=== PATIENT | male | born 1965 | race Caucasian/White ===

== ENCOUNTER → 2016-08-27 | Outpatient (CLI) | payer OTHER ==
[2016-08-23 09:10] VITALS: BMI 25.0
[2016-08-27 13:14] VITALS: BP 138/62; RESP 16; TEMP 98.9
--- NOTE | 2016-08-27 13:41 | P.HPIM ---
History of Present Illness H&P Date: 08/27/16 Chief Complaint: low back pain s/p multiple back surgeries This is a 51-year-old patient referred by Dr. Choudhary for chronic pain in low back and legs after multiple back surgeries, specifically for left L3-L4 and L4- L5 TFESI; if these injections do not give him relief, Dr. Choudhary is considering performing an XLIF for him. Patient has been taking medications from primary care physician including Valium and Tylenol #3 medications with mild relief. Patient denies adverse drug effects from medications. Patient also denies new-onset weakness, bowel/bladder incontinence, or any other signs or symptoms of cauda equina syndrome. There are no signs of acute intoxication, and no indications of medication diversion or overuse. Of note, patient does have a history of depression with suicidal ideation and was admitted to the hospital in March with this complaint. Patient notes that pain worsens significantly with standing and walking, and improves with rest, ice, injections, and medication. Patient has used several types of medications for pain, including NSAIDS, OPIOIDS (including methadone, up to 10 hydrocodone pills/day, and others), TRAMADOL, ANTIDEPRESSANTS, and BENZODIAZEPINES. Patient HAS had multiple spine surgeries and is considering an anterior lumbar fusion. Patient HAS had numerous injections previously, including caudals, RFAs, SIJ injections, epidurolysis, SCS trial and permanent placement (removed due to lack of functionality). Patient HAS NOT had physical therapy recently, but did so some time ago (was not helpful for him). In addition to above, 13-point review of systems is also negative for chest pain , shortness of breath, changes in vision, changes in hearing, new onset weakness , abdominal pain, diarrhea, extreme fatigue, malaise, fever, skin changes, homicidal or suicidal ideation, or bowel or bladder incontinence. Vital Signs: Reviewed in EMR Gen: WDWN, AAOx3, NAD HEENT: NCAT, EOMI, hearing grossly normal Pulm: resp unlabored Abd: soft, NT, ND Neck: supple, trachea midline ROM in flexion lumbar spine: reduced ROM in extension lumbar spine: reduced Lumbar paravertebral tenderness: + Facet loading: + bilateral SI joint tenderness: + L side > R side Carmelo's test: + L side > R side Straight leg raise: + bilateral Lower extremity: decreased strength LLE (4/5) Neuro: CN II-XII grossly intact, muscle strength lower extremities PRESERVED Past Medical History Past Medical History: Osteoarthritis (OA) Additional Past Medical History / Comment(s): cervical and lumbar region pain radiating to lt buttock and thigh. Degenerative Disc Disease. History of Any Multi-Drug Resistant Organisms: None Reported Past Surgical History: Back Surgery Additional Past Surgical History / Comment(s): six surgeries from [id number], including laminectomy with bone fusion Past Anesthesia/Blood Transfusion Reactions: No Reported Reaction Past Psychological History: No Psychological Hx Reported Smoking Status: Former smoker Past Alcohol Use History: None Reported Additional Past Alcohol Use History / Comment(s): starting smoking age 22 continued off and on 6 cig/day until jul 2016 Past Drug Use History: Marijuana Additional Drug Use History / Comment(s): as a kid. - Past Family History Mother Family Medical History: No Reported History Medications and Allergies Home Medications Medication Instructions Recorded Confirmed Type Acetaminophen-Codeine 300-30mg 1 tab PO Q8H PRN 08/23/16 08/27/16 History [Tylenol #3] DULoxetine HCL [Cymbalta] 60 mg PO DAILY 08/23/16 08/27/16 History Diazepam [Valium] 5 mg PO TID 08/23/16 08/27/16 History Hisxhgf-[id number]-Gnvc [id number] 2 tab PO DAILY PRN 08/27/16 08/27/16 History [Excedrin] Allergies Allergy/AdvReac Type Severity Reaction Status Date / Time Penicillins Allergy Mild Rash/Hives Verified 08/27/16 12:45 methadone Allergy choking Verified 08/27/16 12:45 Results Comments: MRI of the lumbar spine demonstrates tracts from prior pedicle screws at the level of L3-L4 and L5 bilaterally. Within the 3 pedicle on the right side there is abnormal increased signal intensity with abnormal enhancement on the postcontrast images along the tract of the prior pedicle screw. At the L2-L3 level there is posterior disc bulge with facet and ligamentum flavum hypertrophy without central canal stenosis there is mild narrowing of the neural foramina. At the L3-L4 level there is been spinal decompression surgery and a central left-sided foraminal disc protrusion. There is facet hypertrophy and enhancing scar/granulation tissue extending into the posterior superior neural foramina bilaterally. There is severe narrowing of the left neural foramen and left lateral recess and there is moderate narrowing of the right neural foramen on the right lateral recess. The L4-L5 level there are small bilateral foraminal disc protrusions causing mild narrowing on the right neural foramen. At the L5-S1 level there is a small central annular tear with a posterior disc bulge. There is facet and ligamentum flavum hypertrophy at this level along with mild narrowing of the neural foramina. Assessment and Plan (1) Lumbar postlaminectomy syndrome Status: Chronic (2) Lumbosacral spondylosis without myelopathy Status: Chronic (3) Sacroiliac joint dysfunction Status: Chronic (4) Lumbar radiculopathy Status: Chronic Plan: Plan: 1. Explanation: Opioid and psychological risk scores were reviewed. Diagnoses , prognoses, and multiple treatment options including but not limited to physical therapy, interventional therapies, adjuvant medical therapies, narcotic medication therapies, and surgery were discussed with the patient and all questions were answered to the patient's satisfaction. 2. Opioid agreement: no opioids prescribed today 3. Counseling: The patient was counseled extensively on BODY MASS INDEX, EXERCISE. Specifically, the patient was instructed regarding the importance of weight control and exercise in the context of both chronic pain and overall health. 4. Procedures: left L3-L4 and L4-L5 TFESI 5. Consultations: none 6. Investigations: none 7. Medications: none 8. Disposition: Patient has a long history of depression and suicidal ideation , which he did deny today. I told him that we will perform interventions for him, but I am not willing to prescribe opioid medications to him given this history and his going to multiple physicians for medications in the past. He verbalized understanding of this. PQRS measures: 1-Patient's medications are documented in the chart. 2-Tobacco use is negative 3-Patient has not had a pneumococcal vaccine. 4-Advanced care planning discussed, patient unable to give. 5-Opioid contract NOT signed with the patient. 6-Pain positive, follow-up visit or procedure scheduled 7-Patient's blood pressure measured and documented, and patient will follow up with the primary care due to hypertension. 8-Patient's weight was measured, and body mass index within the normal limits. 9-Patient WAS NOT identified as an unhealthy alcohol user. Time with Patient: Greater than 30
== END | disposition home or self-care (01) ==
LOC: PNWHC3 12:36
PROVIDERS: ATTEND Anesthesiology
DX: M96.1 Postlaminectomy syndrome, not elsewhere classified (principal); M47.816 Spondylosis without myelopathy or radiculopathy, lumbar region; M53.88 Other specified dorsopathies, sacral and sacrococcygeal region; M54.16 Radiculopathy, lumbar region; Z87.891 Personal history of nicotine dependence; Z79.899 Other long term (current) drug therapy; Z88.0 Allergy status to penicillin; Z88.6 Allergy status to analgesic agent; I10 Essential (primary) hypertension; F32.9 Major depressive disorder, single episode, unspecified; R45.851 Suicidal ideations
CPT/HCPCS: 99211

== ENCOUNTER → 2016-09-14 | Outpatient (CLI) | payer OTHER ==
--- NOTE | 2016-09-14 13:43 | MR ---
EXAMINATION TYPE: MR cervical spine wo con DATE OF EXAM: 09/14/2016 1:26 PM COMPARISON: 11/13/2015 HISTORY: 51-year-old male paresthesia of left arm, osteoarthritis of spine TECHNIQUE: Multiplanar, multisequence images of the cervical spine were acquired. FINDINGS: There is a polyp or mucosal retention cyst measuring 1.3 cm and the left posterior maxillary sinus. No craniocervical junction abnormality, predental space widening, or prevertebral soft tissue swellin g. Normal alignment of the cervical spine. Redemonstrated degenerative disc disease in the mid to lower cervical spine, primarily at C5-C6 and C 6-C7 characterized by disc desiccation. Moderate disc height loss at C5-C6 and disc osteophyte comple x formation at both of these levels. Ligamentum flavum thickening is also present. No suspicious bone marrow placement. Suggestion of some edematous Modic type I endplate changes are p resent at C5-C6. Additional uncovertebral joint and facet arthropathy at these levels. At C2-C3, no spinal canal or neuroforaminal stenosis. At C3-C4, there is facet degenerative change without significant canal or foraminal stenosis. At C4-C5, there is mild posterior diffuse disc bulge and facet degenerative change. While there is so me impression on the ventral thecal sac, there is no significant spinal canal or neuroforaminal steno sis. At C5-C6, there is increasing broad-based disc osteophyte complex and ligamentum flavum thickening. T here is uncovertebral joint arthropathy as well as facet degenerative change. This results in increas ing moderate spinal canal stenosis with AP canal dimension of 6 mm with abutment and flattening of gareth th the dorsal and ventral cord. Severe bilateral neuroforaminal stenosis also appears increased. At C6-C7, there is disc osteophyte complex with a central posterior disc protrusion. Increasing ligam entum flavum thickening at this level results in worsening now moderate spinal canal stenosis with AP canal dimension of 7 mm. There is abutment and flattening of the dorsal cord. There is mild narrowin g of the left greater than right neuroforamina. At C7-T1, mild facet degenerative change without canal or foraminal stenosis. No abnormal T2 cord signal abnormality. No prevertebral or paravertebral soft tissue abnormality. IMPRESSION: 1. Degenerative disc disease at C5-C6 and to a lesser degree at C6-C7 with corresponding ligamentum f lavum thickening, uncovertebral joint, and facet arthropathy. 2. There is worsening moderate spinal canal stenosis at C5-C6 and to a lesser extent at C6-C7. There is mild impingement of the cord at C5-C6 but no myelopathic cord signal change. Central disc protrusi on and thickened ligamentum flavum abuts the cord at C6-C7 with slight dorsal flattening. 3. Severe bilateral neuroforaminal stenoses at C5-C6.
== END | disposition home or self-care (01) ==
LOC: RADMRIMAIN 12:45
PROVIDERS: ATTEND Internal Medicine
DX: M48.02 Spinal stenosis, cervical region (principal); M99.71 Connective tissue and disc stenosis of intervertebral foramina of cervical region; M50.122 Cervical disc disorder at C5-C6 level with radiculopathy; M46.92 Unspecified inflammatory spondylopathy, cervical region; M24.28 Disorder of ligament, vertebrae
CPT/HCPCS: 72141

== ENCOUNTER 2016-09-25 05:56 | Day surgery (SDC) | payer OTHER ==
[2016-09-21 13:50] VITALS: BMI 24.2
[~2016-09-25 05:56] MED LIST: LACTATED RINGERS 1,000 ML IV SCH
[2016-09-25] MEDS ORDERED: LIDOCAINE 1% 20 ML VIAL (10MG/ML) FOR IV START INTRADERMA ONE (06:49)
[2016-09-25 06:56] VITALS: RESP 16; TEMP 98.4
[2016-09-25] MEDS ORDERED: TRIAMCINOLONE ACETONIDE 40 MG/ML 1 ML VIAL ONE (07:09)
[2016-09-25] MEDS ORDERED: fentaNYL (PF) 50 MCG/ML 2 ML AMP ONE (07:09)
[2016-09-25] MEDS ORDERED: IOHEXOL 180 MG/ML 1 ML ML ONE (07:09)
[2016-09-25] MEDS ORDERED: MIDAZOLAM 2 MG/2 ML VIAL ONE (07:09)
--- NOTE | 2016-09-25 07:40 | P.PCN ---
Date of Procedure: 09/25/16 Procedure(s) Performed: PREOPERATIVE DIAGNOSIS: Lumbar radiculopathy in left L3 4/L4 5 distribution. Lumbar spondylosis. Sacroiliac joint dysfunction. Failed back surgery syndrome lumbar area POSTOPERATIVE DIAGNOSIS: Same as preoperative diagnosis PROCEDURE 1. Transforaminal epidural steroid injection under fluoroscopic guidance at left L3-4 and L4 -5 level. 2. Lumbar epidurogram : ANESTHESIA: Local with 1% lidocaine4 ml ; IV sedation with Versed 2 mg and fentanyle 100 mcg . EBL: Minimal PROCEDURE INDICATION: The patient with low back pain and radiculopathy symptoms unresponsive to conservative treatment. PROCEDURE DESCRIPTION / TECHNIQUE: The patient was seen and identified in the preoperative area. Risks, benefits , complications, and alternatives were discussed with the patient. The patient agreed to proceed with the procedure and signed the consent. IV was started, and vital signs were stable. Patient was taken to the OR and time out was completed. The patient was placed in the prone position on procedure table and a pillow was placed under the abdomen to reduce lumbar lordosis. The lumbosacral area was prepped and draped in the usual sterile fashion. Critical pause was taken. Vital signs were closely monitored during the procedure. Conscious sedation was used during the procedure to decrease patients anxiety. Using oblique fluoroscopy, the chin of the ``Moose dog at left l3-4 level was identified, and the skin and deeper tissues just below was localized with 1 % lidocaine. Subsequently, a 22-gauge 3.5-inch spinal needle was advanced under a tunneled view fluoroscopic guidance just underneath the chin of the ``Moose dog at the left L3 4. Under lateral fluoroscopy, the needle was then advanced to the posterior border of the left L3 4 interforaminal space. After negative aspiration of CSF and blood and with no paresthesias, 1 mL ofomnipaque-240 contrast dye was injected excellent epidurogram and outlining of the left L3 4 nerve root Subsequently, 3 mL of block solution containing 40 mg of Kenalog and 2 mL of Lidocaine 1% was injected. Needle was removed and the same procedure was repeated at the left L4 5. At the end of the procedure, skin was cleansed, and bandages were applied. COMPLICATIONS: None COMMENTS: DISPOSITION / PLANS: The patient was placed in a supine position and transferred to the recovery area in a stable condition for observation. There was no evidence of lower extremity motor or sensory deficit after the procedure. Patient was discharged from the recovery room after meeting discharge criteria. Home discharge instructions were given to the patient by the staff. The patient was reexamined prior to discharge.
[2016-09-25] MEDS ORDERED: IV FLUID CONTINUATION 1,000 ML IV ONE ×2 (07:42)
[2016-09-25 07:50] VITALS: PULSE 61
[2016-09-25 07:55] VITALS: BP 122/80
--- NOTE | 2016-09-25 07:57 | FL ---
EXAMINATION TYPE: FL guided pain mgmt statistic DATE OF EXAM: 09/25/2016 7:37 AM HISTORY: LT LUMBAR STEROID INJ 30 sec fl, 3 films
== END 2016-09-25 08:14 | disposition home or self-care (01) ==
LOC: ORPAIN 05:56
PROVIDERS: ATTEND Specialist
DX: M47.26 Other spondylosis with radiculopathy, lumbar region (principal); M53.3 Sacrococcygeal disorders, not elsewhere classified; M96.1 Postlaminectomy syndrome, not elsewhere classified; Z88.0 Allergy status to penicillin; Z91.09 Other allergy status, other than to drugs and biological substances; Z79.899 Other long term (current) drug therapy
CPT/HCPCS: 64483; 64484; 99152; J2250; J3301; Q9965; J3010

== ENCOUNTER 2016-10-10 06:46 | Day surgery (SDC) | payer OTHER ==
[2016-10-09 08:34] VITALS: BMI 25.0
[2016-10-10 07:44] VITALS: RESP 16; TEMP 98.3
[2016-10-10] MEDS ORDERED: LIDOCAINE 1% 20 ML VIAL (10MG/ML) FOR IV START INTRADERMA ONE (07:51)
[2016-10-10] MEDS ORDERED: MIDAZOLAM 2 MG/2 ML VIAL ONE (08:08)
[2016-10-10] MEDS ORDERED: TRIAMCINOLONE ACETONIDE 40 MG/ML 1 ML VIAL ONE (08:08)
[2016-10-10] MEDS ORDERED: fentaNYL (PF) 50 MCG/ML 2 ML AMP ONE (08:08)
[2016-10-10] MEDS ORDERED: IOHEXOL 180 MG/ML 1 ML ML ONE (08:08)
--- NOTE | 2016-10-10 08:37 | P.PCN ---
Date of Procedure: 10/10/16 Procedure(s) Performed: PREOPERATIVE DIAGNOSIS:1- Lumbar radiculopathy in Left L3-4, Left L4-5 distribution. 2-lumbar spondylosis . 3-sacroiliac joint dysfunction. 4-cervical spondylosis. 5-cervical foraminal stenosis POSTOPERATIVE DIAGNOSIS: Same as preoperative diagnosis. PROCEDURE 1. Transforaminal epidural steroid injection under fluoroscopic guidance at left L3 4/L4 5 level. ( second injections ) 2. Lumbar epidurogram : ANESTHESIA: Local with 1% lidocaine for ML; IV sedation with Versed 2 mg and fentanyle 100 g . EBL: Minimal PROCEDURE INDICATION: The patient with neck pain, and low back pain and radiculopathy symptoms unresponsive to conservative treatment. PROCEDURE DESCRIPTION / TECHNIQUE: The patient was seen and identified in the preoperative area. Risks, benefits , complications, and alternatives were discussed with the patient. The patient agreed to proceed with the procedure and signed the consent. IV was started, and vital signs were stable. Patient was taken to the OR and time out was completed. The patient was placed in the prone position on procedure table and a pillow was placed under the abdomen to reduce lumbar lordosis. The lumbosacral area was prepped and draped in the usual sterile fashion. Critical pause was taken. Vital signs were closely monitored during the procedure. Conscious sedation was used during the procedure to decrease patients anxiety. Using oblique fluoroscopy, the chin of the ``Moose dog at left L3-4 level was identified, and the skin and deeper tissues just below was localized with 1 % lidocaine. Subsequently, a 25-gauge 3.5-inch spinal needle was advanced under a tunneled view fluoroscopic guidance just underneath the chin of the `Aley dog at the left L3-4 . Under lateral fluoroscopy, the needle was then advanced to the posterior border of the Left L3-4 interforaminal space. After negative aspiration of CSF and blood and with no paresthesias, 1 mL ofomnipaque- 240 contrast dye was injected excellent epidurogram and outlining of the left nerve root Subsequently, 3 mL of block solution containing 40 mg of Kenalog and 2 mL of Lidocaine 1% was injected. Needle was removed and the same procedure was repeated at the Left L4-5 level. At the end of the procedure, skin was cleansed, and bandages were applied. COMPLICATIONS: None COMMENTS: DISPOSITION / PLANS: The patient was placed in a supine position and transferred to the recovery area in a stable condition for observation. There was no evidence of lower extremity motor or sensory deficit after the procedure. Patient was discharged from the recovery room after meeting discharge criteria. Home discharge instructions were given to the patient by the staff. The patient was reexamined prior to discharge.
--- NOTE | 2016-10-10 08:42 | FL ---
EXAMINATION TYPE: FL guided pain mgmt statistic DATE OF EXAM: 10/10/2016 8:29 AM HISTORY: Pain 10 sec fluoro, 1 images scanned, Dr. Blackman
[2016-10-10 09:02] VITALS: BP 132/76; PULSE 57
[2016-10-10] MEDS ORDERED: IV FLUID CONTINUATION 1,000 ML IV ONE (09:05)
== END 2016-10-10 09:16 | disposition home or self-care (01) ==
LOC: ORPAIN 06:46
PROVIDERS: ATTEND Specialist
DX: M47.26 Other spondylosis with radiculopathy, lumbar region (principal); M53.3 Sacrococcygeal disorders, not elsewhere classified; M47.812 Spondylosis without myelopathy or radiculopathy, cervical region; M48.02 Spinal stenosis, cervical region; Z88.5 Allergy status to narcotic agent; Z88.0 Allergy status to penicillin
CPT/HCPCS: 64483; 64484; 99152; J2250; J3301; Q9965; J3010

== ENCOUNTER → 2016-12-05 | Outpatient (CLI) | payer OTHER ==
[2016-12-05 11:14] VITALS: BP 140/82; PULSE 61; RESP 18; TEMP 98.2
--- NOTE | 2016-12-05 11:36 | P.PN ---
Progress Note - Text Patient returns for followup for chronic neck and back pain with radiation to LUE and bilateral lower extremities from work-related injury. Patient recently underwent two left sided transforaminal ESIs, which provided some relief for 1- 2 days' interval. Patient continues on [place] medications for pain from Dr. Sheppard with good relief. Patient denies adverse drug effects from medications. Today, pt denies new-onset weakness, bowel/bladder incontinence, or any other signs or symptoms of cauda equina syndrome. There are no signs of acute intoxication, and no indications of medication diversion or overuse. In addition to above, 13-point review of systems is also negative for chest pain , shortness of breath, changes in vision, changes in hearing, new onset weakness , abdominal pain, diarrhea, extreme fatigue, malaise, fever, skin changes, homicidal or suicidal ideation, or bowel or bladder incontinence. Vital Signs: Reviewed in EMR Gen: WDWN, AAOx3, NAD HEENT: NCAT, EOMI, hearing grossly normal Pulm: resp unlabored Abd: soft, NT, ND Neck: supple, trachea midline ROM in flexion lumbar spine: reduced ROM in extension lumbar spine: reduced Lumbar paravertebral tenderness: + Facet loading: + bilateral, L > R SI joint tenderness: + bilateral, L > R Carmelo's test: + bilateral Straight leg raise: + LLE at 10 degrees Lower extremity: decreased strength secondary to pain Neuro: CN II-XII grossly intact, muscle strength lower extremities PRESERVED Imaging: Reviewed in EMR Assessment: 1. lumbar PLPS 2. cervical spinal stenosis 3. chronic pain syndrome Plan: 1. Explanation: Opioid and psychological risk scores were reviewed. Diagnoses , prognoses, and multiple treatment options including but not limited to physical therapy, interventional therapies, adjuvant medical therapies, narcotic medication therapies, and surgery were discussed with the patient and all questions were answered to the patient's satisfaction. 2. Opioid agreement: no opioids prescribed today 3. Counseling: The patient was counseled extensively on BODY MASS INDEX, EXERCISE. Specifically, the patient was instructed regarding the importance of weight control and exercise in the context of both chronic pain and overall health. 4. Procedures: none for now 5. Consultations: Dr. Bai re: neurosurgical opinion 6. Investigations: None 7. Medications: none prescribed 8. Disposition: f/u as needed; patient may return for cervical ESIs if recommended by Dr. Bai. He has already undergone TFESIs with us and also had a spinal cord stimulator placed and subsequently removed. PQRS measures: 1-Patient's medications are documented in the chart. 2-Tobacco use is negative 3-Patient has not had a pneumococcal vaccine. 4-Advanced care planning discussed, patient unable to give. 5-Opioid contract NOT signed with the patient. 6-Pain positive, follow-up visit or procedure scheduled 7-Patient's blood pressure measured and documented, and patient will follow up with the primary care due to hypertension. 8-Patient's weight was measured, and body mass index within the normal limits 9-Patient WAS NOT identified as an unhealthy alcohol user.
== END ==
LOC: PNWHC3 10:51
PROVIDERS: ATTEND Anesthesiology
DX: M48.02 Spinal stenosis, cervical region (principal); G97.1 Other reaction to spinal and lumbar puncture; G89.4 Chronic pain syndrome; Z79.891 Long term (current) use of opiate analgesic
CPT/HCPCS: 99211

== ENCOUNTER → 2017-06-11 | Outpatient (CLI) | payer OTHER ==
--- NOTE | 2017-06-11 23:35 | MR ---
EXAMINATION TYPE: MR willian/lsnany wo/w con DATE OF EXAM: 06/11/2017 COMPARISON: 09/14/2016 cervical spine HISTORY: Klippel-Feil syndrome, Pain, Prior surgeries TECHNIQUE: Multiplanar, multisequence images of the lumbar spine is performed without and with IV contrast, util izing 6.5 mL intravenous Gadavist The cervical vertebra have normal alignment. There is metal artifact apparently from anterior fusion surgery at see 5 6. There are small posterior disc herniations at C4-5 and C6-7 into the spinal canal . The canal is narrowed to 8 mm at C6-7. There are tiny foci of increased signal within the cord at C 5-6 level on the T2 images consistent with some myelomalacia. The brainstem appears intact. Posterior elements are intact. There is no cervical paraspinal mass. The contrast images show some mild dural enhancement around the spinal canal at the C6-7 level. There is mild enhancement of the C5-6 disc. The lumbar vertebra have normal alignment. There is mild narrowing of lumbar disc spaces. There is po sterior disc herniations from L3 to S1 with some narrowing of the spinal canal. There is right side L 3-4 neural foraminal impingement due to disc herniation. There is moderate left side L3-4 disc hernia tion impinging on the neural foramen. I see no focal bone destruction. There is hypertrophic facet ar thropathy with lateral recess stenosis at L4-5 L3-4. Contrast images in the lumbar spine show no path ologic enhancement. I see no focal bone destruction. There is no compression fracture. There is radu ectomy defect in the lower lumbar spine at L4. Conclusion Cervical spine Anterior fusion surgery. There is improvement in the spinal stenosis at C5-6 compared to last exam bu t there is some focal minimal myelomalacia in the cervical cord at C5-6. There are posterior disc her niations at C4-5 and C5-6 which appear increased in size compared to last exam. There is circumferent ial dural enhancement at C6-7 and within C5-6 disc enhancement that could relate to ongoing low-grade inflammatory process and discitis. There is new C6-7 8 mm spinal stenosis. Lumbar spine Posterior multileveled disc herniation. Bilateral significant neural foraminal impingement at L3-4 du e to posterior disc herniation. No fracture. Spinal stenosis at L3-4 L4-5 is mild and worse at L3-4. L4 laminectomy. Moderate lateral recess stenosis due to facet arthropathy at L3-4 and L4-5.
== END | disposition home or self-care (01) ==
LOC: RADMRIMAIN 08:57
PROVIDERS: ATTEND Specialist
DX: M48.061 Spinal stenosis, lumbar region without neurogenic claudication (principal); M48.02 Spinal stenosis, cervical region; M51.27 Other intervertebral disc displacement, lumbosacral region; M50.221 Other cervical disc displacement at C4-C5 level; M46.86 Other specified inflammatory spondylopathies, lumbar region; Z98.890 Other specified postprocedural states; Z98.1 Arthrodesis status
CPT/HCPCS: 72156; 72158; A9581

== ENCOUNTER → 2018-04-03 | Outpatient (CLI) | payer MEDICARE, OTHER ==
--- NOTE | 2018-04-06 17:58 | MR ---
EXAMINATION TYPE: MR lucreciaine/lspine wo/w con DATE OF EXAM: 04/03/2018 COMPARISON: 06/11/2017 HISTORY: 52-year-old male Lower back and neck pain, headaches, bilateral upper extremity weakness, le ft lower extremity pain, history neck surgery Technique: Multiplanar, multisequence images of the cervical and lumbar spine were obtained before an d after administration of 6.5 mL intravenous Gadavist gadolinium contrast. FINDINGS: CERVICAL SPINE: No craniocervical junction abnormality, predental space widening, or prevertebral soft tissue swellin g. Preserved alignment of the cervical spine. No suspicious bone marrow replacement. Postsurgical changes of ACDF at C5-C6. Moderate degenerative disc disease is present at the levels above and below C4-C5 and C6-C7, relative ly similar to prior exam with disc desiccation and disc osteophyte complex. Ligamentum flavum thickening is present at C6/C7. Scattered facet and uncovertebral joint degenerative change. There is stable focal increased cord signal opposite C5-C6 with snake eye configuration compatible wi th chronic compressive myelomalacia. No new abnormal T2 weighted cord signal changes. At C2-C3, mild facet arthropathy without canal or foraminal stenosis. At C3-C4, mild facet arthropathy without significant canal or foraminal stenosis. At C4-C5, above the fusion, there is mild facet and uncovertebral joint degenerative change. There is a mild disc osteophyte complex minimally impressing into the ventral thecal sac. No significant spin al canal stenosis. At C5-C6, the fused level, there is bilateral hypertrophic uncovertebral joint degenerative change an d facet arthropathy. Changes resulting in severe bilateral neural foraminal stenosis but no spinal ca nal stenosis. At C6/C7, below the fusion, there is broad-based disc osteophyte complex with superimposed central di sc protrusion and posterior annular fissure. Ligamentum flavum thickening is present with facet and u ncovertebral joint degenerative change. Changes result in mild left greater than right neuroforaminal stenosis moderate overall spinal canal stenosis, similar to prior exam with abutment of both the bucky kristin and ventral cord but no apparent cord deformation. At C7-T1, mild facet degenerative change without significant canal or foraminal stenosis. No prevertebral or paravertebral soft tissue abnormality. No abnormal cord enhancement. LUMBAR SPINE: 2.2 cm cyst medial left kidney. No prevertebral or paravertebral soft tissue abnormality seen. Vertebral body heights are preserved and alignment is maintained. Moderate multilevel degenerative disc disease is present with variable disc desiccation and mild disc space narrowing. Large disc bulges are present throughout as well as multilevel ligamentum flavum th ickening and hypertrophic facet arthropathy. Prior L3 and L4 laminectomy changes. Conus medullaris is normal. At T12-L1, minimal disc bulge without spinal canal stenosis. Additional mild facet degenerative shaver e which contributes to mild inferior right neural foraminal stenosis, similar to prior. At L1-L2, mild facet arthropathy without significant canal or foraminal stenosis. At L2-L3, mild bulging disc with ligamentum flavum thickening and facet degenerative change. There is ventral impression on the thecal sac without significant spinal canal stenosis. Changes result in mi ld left neuroforaminal stenosis. No significant spinal canal stenosis. At L3-L4, there is diffuse disc bulge with hypertrophic facet arthropathy and ligamentum flavum thick ening. Laminectomy change at this level with dorsal decompression of the thecal sac. However, there i s bilateral lateral recess stenosis demonstrated at this level as well as a superimposed left intrafo raminal disc extrusion with some superior migration of disc material. Some enhancing disc material is present here. Results in a moderate to severe left L3-L4 neuroforaminal stenosis. There is mild oliver toneal enhancement at this level as well, refer to sagittal image 4 and axial images 14. Moderate rig ht neuroforaminal stenosis. At L4-L5, diffuse disc bulge with facet arthropathy. Changes result in mild right greater than left n euroforaminal stenosis. Mild circumferential attenuation of the thecal sac despite dorsal decompressi on. No significant spinal canal stenosis. At L5-S1, there is diffuse disc bulge and facet degenerative change. Mild bilateral neuroforaminal na rrowing without spinal canal stenosis. Posterior annular fissure as previously seen at L4-L5 and L5-S1 show some healing. COMBINED IMPRESSION: CERVICAL SPINE: 1. THE SPINAL CANAL AT C5-C6 REMAINS PATENT STATUS POST C5-C6. THERE IS STABLE CHRONIC COMPRESSIVE MY ELOMALACIA WITH A SNAKE EYE CONFIGURATION OF THE CORD AT THIS LEVEL. 2. SEVERE BILATERAL NEURAL FORAMINAL STENOSES SECONDARY TO HYPERTROPHIC UNCOVERTEBRAL JOINT AND FACET ARTHROPATHY REMAINS AT THIS LEVEL. 3. BELOW THE FUSION AT C6-C7, THERE IS DISC OSTEOPHYTE COMPLEX WITH SUPERIMPOSED CENTRAL DISC PROTRUS ION WITH ANNULAR FISSURE, RELATIVELY SIMILAR TO PRIOR, RESULTING IN MODERATE SPINAL CANAL STENOSIS. T HERE IS ABUTMENT OF BOTH THE DORSAL AND VENTRAL CORD WITHOUT DISCRETE CORD FLATTENING. SIMILAR MILD E NHANCEMENT BOTH ANTERIORLY AND POSTERIORLY AT THIS LEVEL SUSPECTED TO BE ON A DEGENERATIVE BASIS. LUMBAR SPINE: 1. MODERATE MULTILEVEL DEGENERATIVE DISC DISEASE. ADDITIONAL HYPERTROPHIC FACET ARTHROPATHY MID TO LO WER LUMBAR SPINE. THE POSTERIOR ANNULAR FISSURES AT L4-L5 AND L5-S1 SHOW SOME HEALING FROM PRIOR EXAM . 2. STATUS POST L3 AND L4 LAMINECTOMIES. NO CANAL COMPROMISE. 3. AT L3-L4, THERE IS PERSISTENT BILATERAL LATERAL RECESS STENOSIS WITH BULGING DISC AND SUPERIMPOSED LEFT INTRAFORAMINAL DISC EXTRUSION WITH SOME SUPERIOR MIGRATION OF DISC MATERIAL. THIS RESULTS IN A CONTINUED MODERATE TO SEVERE LEFT NEUROFORAMINAL STENOSIS. MODERATE RIGHT NEUROFORAMINAL STENOSIS AT THIS LEVEL. 4. ALSO AT L3-L4, THERE IS MINIMAL PERINEURAL ENHANCEMENT SUGGESTING SOME GRANULATION TISSUE ALONG TH E EXITING LEFT L3 NERVE ROOT.
== END | disposition home or self-care (01) ==
LOC: RADMRIMAIN 14:30
PROVIDERS: ATTEND Psychiatry & Neurology Neurology
DX: M48.02 Spinal stenosis, cervical region (principal); M99.71 Connective tissue and disc stenosis of intervertebral foramina of cervical region; M50.223 Other cervical disc displacement at C6-C7 level; M46.82 Other specified inflammatory spondylopathies, cervical region; Q05.5 Cervical spina bifida without hydrocephalus; M25.78 Osteophyte, vertebrae; G95.89 Other specified diseases of spinal cord; M48.061 Spinal stenosis, lumbar region without neurogenic claudication; M99.73 Connective tissue and disc stenosis of intervertebral foramina of lumbar region; M51.26 Other intervertebral disc displacement, lumbar region; M51.36 Other intervertebral disc degeneration, lumbar region; M46.86 Other specified inflammatory spondylopathies, lumbar region; Q05.7 Lumbar spina bifida without hydrocephalus; Z88.0 Allergy status to penicillin; Z98.1 Arthrodesis status
CPT/HCPCS: 72156; 72158; A9585

== ENCOUNTER → 2018-05-21 | Outpatient (CLI) | payer MEDICARE, OTHER ==
--- NOTE | 2018-05-21 11:56 | FL ---
EXAMINATION TYPE: FL barium swallow DATE OF EXAM: 05/21/2018 COMPARISON: None HISTORY: Dysphagia, pain when drinking, feels like throat closing TECHNIQUE: A double air contrast esophagram study is performed. FINDINGS: Fluoroscopy time: 59 seconds Images: 26 Esophagus dilates to normal caliber has a more normal contour to the gastroesophageal junction. Gastr oesophageal junction opens to normal caliber. No intraluminal or extramural defects are evident. No hesitancy is noted at the anterior cervical fusion. No significant compression is identified. There is complete stripping of the esophageal bolus in the horizontal drinking position. Symptoms were not reproduced during this examination. IMPRESSIONS: 1. Normal esophagram.
== END | disposition home or self-care (01) ==
LOC: RADFLWHC 08:21
PROVIDERS: ATTEND Physician Assistant
DX: R13.13 Dysphagia, pharyngeal phase (principal)
CPT/HCPCS: 74220

== ENCOUNTER 2018-06-11 21:02 | Emergency (ER) | payer MEDICARE, OTHER ==
--- NOTE | 2018-06-11 21:25 | ED ---
Psych HPI - General Chief Complaint: Psychiatric Symptoms Stated Complaint: Mental health Time Seen by Provider: 06/11/18 21:24 Source: patient Mode of arrival: ambulatory - History of Present Illness Initial Comments: Antelmo is a 53-year-old male who presents to the emergency Department today with complaints of depression. Patient reports she's just began to feel overwhelmed, he states he saw outpatient care with a [employer] counselor however he felt as though this counselor was rather judgmental and due to being of the [employer] pur[employer] he felt that he cannot be honest with his counselor about everything that is causing him distress in his life. Patient reports that he came to the ER today seeking advice for with her to have further care. Patient denies suicidal or homicidal ideation. Patient was also distressed by the fact that he suffers from chronic pain due to a work injury which resulted in him needing 7 surgeries on his back. Patient has been on narcotics for a long period time and reports that he also wants to get off of these and wants help. - Related Data Home Medications Medication Instructions Recorded Confirmed Morphine Sulfate ER [Ms Contin] 15 mg PO Q12HR 06/11/18 06/11/18 Multivitamins, Thera [Multivitamin 1 tab PO DAILY 06/11/18 06/11/18 (formulary)] oxyCODONE-APAP 7.5-325MG [Percocet 1 tab PO BID PRN 06/11/18 06/11/18 7.5-325 mg] Allergies Allergy/AdvReac Type Severity Reaction Status Date / Time Penicillins Allergy Mild Rash/Hives Verified 06/11/18 21:35 methadone Allergy choking Verified 06/11/18 21:35 feeling" Review of Systems ROS Statement: Those systems with pertinent positive or pertinent negative responses have been documented in the HPI. ROS Other: All systems not noted in ROS Statement are negative. Past Medical History Past Medical History: Musculoskeletal Disorder, Osteoarthritis (OA) Additional Past Medical History / Comment(s): cervical and lumbar region pain radiating to lt buttock and thigh. Degenerative Disc Disease. History of Any Multi-Drug Resistant Organisms: None Reported Past Surgical History: Back Surgery Additional Past Surgical History / Comment(s): six surgeries from [id number], including laminectomy with bone fusion Past Anesthesia/Blood Transfusion Reactions: No Reported Reaction Past Psychological History: Depression Smoking Status: Former smoker - Past Family History Mother Family Medical History: No Reported History General Exam - General Exam Comments Initial Comments: Physical Exam GENERAL: Patient is well-developed and well-nourished. Patient is nontoxic and well- hydrated and is in no distress. HENT: Normocephalic, Atraumatic. EYES: PERRL, EOMI PULMONARY: Unlabored respirations. No audible rales rhonchi or wheezing was noted. CARDIOVASCULAR: There is a regular rate and rhythm without any murmurs gallops or rubs. ABDOMEN: Soft and nontender with normal bowel sounds. SKIN: Skin is clear with no lesions or rashes and otherwise unremarkable. : Deferred NEUROLOGIC: Patient is alert and oriented x3. Moving all extremities spontaneously MUSCULOSKELETAL: Normal extremities with adequate strength and full range of motion. No lower extremity swelling or edema. No calf tenderness. PSYCHIATRIC: Normal psychiatric evaluation. Limitations: no limitations Limitations: no limitations Course Vital Signs 06/11/18 21:18 Temperature 98.5 F Pulse Rate 901 H Respiratory 16 Rate Blood Pressure 121/78 O2 Sat by Pulse 98 Oximetry Medical Decision Making - Medical Decision Making The patient was seen and evaluated history was obtained from the patient At this time I do not feel the patient is acutely suicidal homicidal, he is clean and well kempt, is clearly attending to his activities of daily living he is requesting outpatient resources Mariah from [facility] met with the patient, she provided the patient outpatient resources. At this time she recommends discharge home. Patient is agreeable to this. All questions pertaining care answered patient discharged home in stable condition. Disposition Clinical Impression: Depression Disposition: HOME SELF-CARE Condition: Stable Instructions: Depression (ED) Is patient prescribed a controlled substance at d/c from ED?: No Referrals: Chris Childs MD [Primary Care Provider] - 1-2 days
[2018-06-11 23:20] VITALS: BP 134/85; PULSE 83; RESP 18; TEMP 99.2
== END 2018-06-11 23:20 | disposition home or self-care (01) ==
LOC: EC 21:02 → SUPCPDRO 21:02 → EC 23:20
DX: F32.9 Major depressive disorder, single episode, unspecified (principal); Z87.891 Personal history of nicotine dependence; Z88.0 Allergy status to penicillin; Z88.5 Allergy status to narcotic agent
CPT/HCPCS: 82075; 99284

== ENCOUNTER 2020-11-12 11:10 | Inpatient (IN) | payer MEDICARE, MEDICAID ==
--- NOTE | 2020-11-12 11:57 | ED ---
General Adult HPI - General Chief complaint: Psychiatric Symptoms Stated complaint: Suicidal Time Seen by Provider: 11/12/20 11:25 Source: patient, RN notes reviewed, old records reviewed Mode of arrival: ambulatory Limitations: no limitations - History of Present Illness Initial comments: This is a 55-year-old male who presents emergency department with past medical history significant for depression. Patient states over the last 2-3 weeks he's felt more depressed he at that point time stopped her Cymbalta because he thought maybe that was adding to his depression. Patient denies any alcohol use patient denies any drug use. Patient currently is on no antidepressants. Patient states no particular but seems to make it worse she thinks the Fligoo just stopped working. Patient denies any fever chills or cough per patient denies any chest pain or difficulty breathing. Patient denies any abdominal pain patient denies nausea vomiting diarrhea. - Related Data Home Medications Medication Instructions Recorded Confirmed DULoxetine HCL [Cymbalta] 60 mg PO DAILY 11/12/20 11/12/20 Gabapentin [Neurontin] 100 mg PO TID PRN 11/12/20 11/12/20 HYDROcodone/APAP 5-325MG [[place] 1 tab PO BID PRN 11/12/20 11/12/20 5-325] Triamcinolone 0.1% Cream [Kenalog 1 applicatio TOPICAL BID PRN 11/12/20 11/12/20 0.1% Cream] Allergies Allergy/AdvReac Type Severity Reaction Status Date / Time Penicillins Allergy Mild Rash/Hives Verified 11/12/20 11:27 methadone Allergy choking Verified 11/12/20 11:27 feeling" Review of Systems ROS Statement: Those systems with pertinent positive or pertinent negative responses have been documented in the HPI. ROS Other: All systems not noted in ROS Statement are negative. Past Medical History Past Medical History: Musculoskeletal Disorder, Osteoarthritis (OA) Additional Past Medical History / Comment(s): cervical and lumbar region pain radiating to lt buttock and thigh. Degenerative Disc Disease. History of Any Multi-Drug Resistant Organisms: None Reported Past Surgical History: Back Surgery Additional Past Surgical History / Comment(s): six surgeries from [id number], including laminectomy with bone fusion Past Anesthesia/Blood Transfusion Reactions: No Reported Reaction Past Psychological History: Depression Smoking Status: Current every day smoker Past Alcohol Use History: None Reported, Abuse Past Drug Use History: None Reported - Past Family History Mother Family Medical History: No Reported History General Exam - General Exam Comments Initial Comments: GENERAL: Patient is well-developed and well-nourished. Patient is nontoxic and well-hydrated and is in no acute distress. ENT: Neck is soft and supple. No significant lymphadenopathy is noted. Oropharynx is clear. Moist mucous membranes. Neck has full range of motion without eliciting any pain. EYES: The sclera were anicteric and conjunctiva were pink and moist. Extraocular movements were intact and pupils were equal round and reactive to light. Eyelids were unremarkable. PULMONARY: Unlabored respirations. Good breath sounds bilaterally. No audible rales rhonchi or wheezing was noted. CARDIOVASCULAR: There is a regular rate and rhythm without any murmurs gallops or rubs. ABDOMEN: Soft and nontender with normal bowel sounds. No palpable organomegaly was noted. There is no palpable pulsatile mass. SKIN: Skin is clear with no lesions or rashes and otherwise unremarkable. NEUROLOGIC: Patient is alert and oriented x3. Cranial nerves II through XII are grossly intact. Motor and sensory are also intact. Normal speech, volume and content. Symmetrical smile. MUSCULOSKELETAL: Normal extremities with adequate strength and full range of motion. LYMPHATICS: No significant lymphadenopathy is noted PSYCHIATRIC: Patient states she's been very depressed over the last couple of weeks and he is now content putting suicide. Patient comes on his own to seek help. Limitations: no limitations Course Vital Signs 11/12/20 11/12/20 11:23 13:15 Temperature 97.7 F Pulse Rate 71 Respiratory 20 16 Rate Blood Pressure 121/72 O2 Sat by Pulse 99 Oximetry Disposition Clinical Impression: Suicidal ideation, Depression Disposition: ADMITTED IP TO THIS HOSP Referrals: Nonstaff,Physician [Primary Care Provider] - 1-2 days Time of Disposition: 14:13
[2020-11-12 14:33] LABS: Amphetamine Screen,Urine Not Detected (NotDetected); Barbiturate Screen,Urine Not Detected (NotDetected); Benzodiazepines Screen,Urine Not Detected (NotDetected); Cocaine Screen,Urine Detected (NotDetected); Methadone Screen, Urine Not Detected (NotDetected); Opiate Screen,Urine Not Detected (NotDetected); Oxycodone Screen, Urine Not Detected (NotDetected); Phencyclidine Screen,Urine Not Detected (NotDetected); Tricyclic Antidepressant,Urine Not Detected (NotDetected); Urn Cannabinoid Scrn Detected (NotDetected)
[2020-11-12] MEDS ORDERED: MAG HYDROX/AL HYDROX/SIMETH 30 ML CUP PO PRN (15:00)
[2020-11-12] MEDS ORDERED: MAGNESIUM HYDROXIDE 2,400 MG/10 ML CUP PO PRN (15:00)
[2020-11-12] MEDS ORDERED: LORazepam 2 MG/ML INJ IM PRN (15:03)
[2020-11-12] MEDS ORDERED: HALOPERIDOL LACTATE 5 MG/ML 1 ML VIAL IM PRN (15:04)
[2020-11-12] MEDS: HYDROcodone/APAP 5-325MG 1 EACH TAB PO PRN ×2 (16:52→21:15)
[2020-11-12] MEDS: GABAPENTIN 100 MG CAP PO SCH (21:14)
[2020-11-13] MEDS ORDERED: diphenhydrAMINE 25 MG CAP PO PRN (00:34)
--- NOTE | 2020-11-13 00:34 | P.CONS ---
History of Present Illness - Reason for Consult Consult date: 11/13/20 - History of Present Illness The patient is a 55-year-old male with a PMH of spinal DJD, polysubstance abuse, and depression who presented to the emergency room complaints of depressive thoughts. The patient was admitted to the mental health unit where he was seen and evaluated. She reports feeling better since his admission. He notes that he has been having difficulty with his circumstances since he has been having to take care of his elderly father. He also reports chronic lower back and buttock pain, unchanged, for which she takes [place] 5 at home. He also reports itching with some redness over his forearms bilaterally. He isn't sure what caused it but reports that it started when 2 days ago and has occurred in the past and normally resolved with topical steroids and Benadryl. He denied additional complaints. Denied chest pain, shortness of breath, fever, chills, cough. Denied abdominal pain, nausea, vomiting, diarrhea. Laboratory evaluation was reviewed with urine tox cardiac positive for cocaine and marijuana. Review of systems: Pertinent positives and negatives as discussed in HPI, a complete review of systems was performed and all other systems are negative. Physical examination: General: non toxic, no distress, appears at stated age, normal weight Derm: Mild erythema overlying the extensor surfaces of bilateral forearms, no unusual ecchymoses, warm, dry Head: atraumatic, normocephalic, symmetric Eyes: EOMI, no lid lag, anicteric sclera, pupils equal round reactive to light ENT: Nose and ears atraumatic, no thrush, no pharyngeal erythema Neck: No thyromegaly, no cervical lymphadenopathy, trachea midline, supple Mouth: no lip lesion, mucus membranes moist Cardiovascular: S1S2 reg, no murmur, positive posterior tibial pulse bilateral, no edema, capillary refill less than 2 seconds Lungs: CTA bilateral, no rhonchi, no rales , no accessory muscle use Abdominal: soft, nontender to palpation, no guarding, no appreciable organomegaly, normal bowel sounds Ext: no gross muscle atrophy, muscle strength 5 out of 5 in all 4 extremities grossly, no contractures, Neuro: CN II-XI grossly intact, light touch intact all 4 extremities, finger to nose within normal limits, Psych: Alert, oriented, appropriate affect Assessment/plan Spinal DJD -Continue with home [place] dose Polysubstance abuse -Advised on importance of cessation Depression -As per psychiatry Forearm rash -Hydrocortisone topically Past Medical History Past Medical History: Musculoskeletal Disorder, Osteoarthritis (OA) Additional Past Medical History / Comment(s): -Cervical and Lumbar region pain radiating to lt buttock and thigh. -Degenerative Disc Disease. History of Any Multi-Drug Resistant Organisms: None Reported Past Surgical History: Back Surgery Additional Past Surgical History / Comment(s): Sevon surgeries from [id number] including laminectomy with bone fusion. Past Anesthesia/Blood Transfusion Reactions: No Reported Reaction Past Psychological History: Depression Smoking Status: Current every day smoker Past Alcohol Use History: None Reported, Abuse Additional Past Alcohol Use History / Comment(s): starting smoking age 12 continued off and on 6 cig/day until jul 2016. Smokes 1/1 pack of cigarettes per day. Past Drug Use History: Cocaine Additional Drug Use History / Comment(s): Pt. denies ETOH and drug use. BAT 0. UDS + Cocaine and THC. - Past Family History Mother Family Medical History: Cancer Father Family Medical History: Cancer Additional Family Medical History / Comment(s): Stage IV Lung Cancer Medications and Allergies Home Medications Medication Instructions Recorded Confirmed Type DULoxetine HCL [Cymbalta] 60 mg PO DAILY 11/12/20 11/12/20 History Gabapentin [Neurontin] 100 mg PO TID PRN 11/12/20 11/12/20 History HYDROcodone/APAP 5-325MG [[place] 1 tab PO BID PRN 11/12/20 11/12/20 History 5-325] Triamcinolone 0.1% Cream [Kenalog 1 applicatio TOPICAL BID PRN 11/12/20 11/12/20 History 0.1% Cream] Allergies Allergy/AdvReac Type Severity Reaction Status Date / Time Penicillins Allergy Mild Rash/Hives Verified 11/12/20 17:05 methadone Allergy choking Verified 11/12/20 17:05 feeling" Physical Exam Vitals: Vital Signs Temp Pulse Pulse Resp BP BP Pulse Ox 11/12/20 16:37 98.7 F 63 16 132/73 97 11/12/20 13:15 16 11/12/20 11:23 97.7 F 71 20 121/72 99 Intake and Output 11/12/20 11/12/20 11/13/20 14:59 22:59 06:59 Other: Weight 66.678 kg 62.596 kg Results Labs: Abnormal Lab Results - Last 24 Hours (Table) 11/12/20 Range/Units 13:20 Urine Cocaine Screen Detected H (NotDetected) U Marijuana (THC) Screen Detected H (NotDetected)
[2020-11-13] MEDS: HYDROcodone/APAP 5-325MG 1 EACH TAB PO PRN ×2 (02:35→13:33)
[2020-11-13] MEDS: NICOTINE 21MG/24HR PATCH TRANSDERM SCH (08:42)
[2020-11-13] MEDS: GABAPENTIN 100 MG CAP PO SCH ×3 (08:42→21:36)
[2020-11-13] MEDS: HYDROCORTISONE 1% CREAM 454 GM JAR TOPICAL SCH ×2 (08:42→21:37)
[2020-11-13 12:01] LABS: HGB 15.4 gm/dL (13.0-17.5); MCH 30.8 pg (25.0-35.0); MCHC 30.9 g/dL (31.0-37.0); MCV 99.9 fL (80.0-100.0); Macrocytosis Slight; Mean Platelet Volume 8.2; Platelet Count 351 k/uL (150-450); RBC 5.01 m/uL (4.30-5.90); RDW 14.1 % (11.5-15.5); WBC 7.1 k/uL (3.8-10.6)
[2020-11-13] MEDS: ACETAMINOPHEN TAB 325 MG TAB PO PRN (12:09)
[2020-11-13] MEDS: LORazepam 1 MG TAB PO PRN ×2 (12:11→19:52)
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
[2020-11-13 12:22] LABS: ALT 24 U/L (4-49); AST 30 U/L (17-59); African American GFR (CKD) >90 (>60 ml/min/1.73 sqM); Albumin 4.4 g/dL (3.5-5.0); Alkaline Phosphatase 44 U/L (38-126); Anion Gap 5 mmol/L; Blood Urea Nitrogen 20 mg/dL (9-20); Calcium 9.8 mg/dL (8.4-10.2); Carbon Dioxide 32 mmol/L (22-30); Chloride 100 mmol/L (98-107); Glucose 53 mg/dL (74-99); Non-African American GFR(CKD) >90 (>60 ml/min/1.73 sqM); Potassium 5.3 mmol/L (3.5-5.1); Sodium 137 mmol/L (137-145); Total Bilirubin 0.7 mg/dL (0.2-1.3); Total Protein 6.8 g/dL (6.3-8.2)
[2020-11-13 13:00] LABS: Eosinophils # (M) 0.21 k/uL (0-0.7); Lymphocytes # (M) 1.99 k/uL (1.0-4.8); Monocytes # (M) 0.64 k/uL (0-1.0); Neutrophils # (M) 4.26 k/uL (1.3-7.7); Neutrophils % (M) 60 %; Nucleated Red Blood Cells 0 /100 WBC (0-0); Total Cells Counted 100
[2020-11-13 15:21] LABS: Appearance,Urine Clear (Clear); Bilirubin,Urine Negative (Negative); Blood,Urine Negative (Negative); Color,Urine Yellow; Glucose,Urine (UA) Negative (Negative); Ketones,Urine Negative (Negative); Leukocyte Esterase,Urine Negative (Negative); Nitrite,Urine Negative (Negative); Protein,Urine Negative (Negative); Specific Gravity,Urine 1.017 (1.001-1.035); Urobilinogen,Urine <2.0 mg/dL (<2.0)
[2020-11-13 17:03] LABS: Chol/HDL Ratio 4.04; Cholesterol 218 mg/dL (0-200); LDL Cholesterol,Calculated 141.2 mg/dL (0.0-131.0)
[2020-11-13 19:46] LABS: Hemoglobin A1C 5.3 % (4.0-6.0)
[2020-11-13] MEDS ORDERED: QUEtiapine 100 MG TAB PO SCH (21:00)
[2020-11-14 07:12] VITALS: TEMP 97.7
[2020-11-14 07:55] LABS: Glucose,Whole Blood 90 mg/dL (75-99)
[2020-11-14] MEDS: NICOTINE 21MG/24HR PATCH TRANSDERM SCH (08:31)
[2020-11-14] MEDS: GABAPENTIN 100 MG CAP PO SCH (08:31)
[2020-11-14] MEDS: HYDROCORTISONE 1% CREAM 454 GM JAR TOPICAL SCH ×3 (08:31→21:13)
[2020-11-14] MEDS: HYDROcodone/APAP 5-325MG 1 EACH TAB PO PRN ×3 (08:33→22:42)
[2020-11-14 10:45] LABS: African American GFR (CKD) >90 (>60 ml/min/1.73 sqM); Anion Gap 4 mmol/L; Blood Urea Nitrogen 18 mg/dL (9-20); Calcium 9.4 mg/dL (8.4-10.2); Carbon Dioxide 24 mmol/L (22-30); Chloride 108 mmol/L (98-107); Glucose 95 mg/dL (74-99); Non-African American GFR(CKD) >90 (>60 ml/min/1.73 sqM); Potassium 4.6 mmol/L (3.5-5.1); Sodium 136 mmol/L (137-145)
[2020-11-14] MEDS: LORazepam 1 MG TAB PO PRN ×2 (10:47→19:58)
--- NOTE | 2020-11-14 11:33 | P.PN ---
Progress Note - Text Progress Note Date: 11/14/20 Interval History: Patient was seen wandering the hallways and was directable and agreeable to speak with food writer in the office. Patient reports that he has been experiencing significant mood swings including racing thoughts, low mood, and elevated anxiety. He reports numerous stressors contributing to his presentation including his uncontrolled pain, as well as the ailing health of his father who is diagnosed with stage IV lung cancer. The patient is requesting that this provider document pain is contributing to his mood swings so that medicine may review these notes and address his pain accordingly. The patient reports that he received much improved sleep with the addition of Seroquel on to his regimen. He does report that he is not used to sleeping this much. He was informed that sleep is necessary for stable mood and for better pain control. At this time baldev birch denies any suicidal or homical ideations, intention, and/or plan. He has been adherent with his medications and is not reporting any significant side effects. Patient is not reporting any auditory or visual hallucinations. He denies any paranoia or other delusions. Mental Status Exam: General Appearance: Patient appears to be stated age is alert, directable, and cooperative. Patient is a very lean build, with slightly disheveled and unkempt hair. Behavior: Patient is calmly seated without any agitated behavior. Psychomotor activity slightly elevated. Eye contact is appropriate. Speech: Patient's speech is fluent and nonpressured. Patient is hyperverbal, with rapid rate but is interruptible. Mood/Affect: Mood is improving mildly, affect is intense and expansive. Suicidality/Homicidality: The patient denies any suicidal or homicidal ideation, intention, and/or plan. Perceptions: The patient reports no auditory or visual hallucinations. Though content/process: No delusional thought content is endorsed. Thought process with a fixation on pain medication and management. Memory and concentration: AOX3, grossly intact for the purposes of this session Judgment and insight: Improving mildly Assessment Bipolar disorder, unspecified History of alcohol abuse Plan: -Patient continues to meet criteria for inpatient psychiatric admission for symptom stabilization and safety. Patient has signed adult voluntary form and medication consent and was placed in patient's chart. -Medications: Increase Seroquel to 150 mg by mouth at bedtime for mood stabilization Increase gabapentin to 300 mg by mouth 3 times a day for off-label mood stabilization -When necessary Ativan and Haldol for agitation/aggression. -NRT - nicotine patch -SW on board for discharge planning. Encouraged the patient to participate in milieu.
[2020-11-14] MEDS ORDERED: QUEtiapine 25 MG TAB PO STA (12:00)
[2020-11-14 13:12] LABS: Glucose,Whole Blood 90 mg/dL (75-99)
[2020-11-14] MEDS: GABAPENTIN 300 MG CAP PO SCH ×2 (15:07→21:14)
[2020-11-14] MEDS: ACETAMINOPHEN TAB 325 MG TAB PO PRN (15:07)
[2020-11-14 18:16] LABS: Glucose,Whole Blood 108 mg/dL (75-99)
[2020-11-14 20:06] LABS: Glucose,Whole Blood 124 mg/dL (75-99)
[2020-11-14] MEDS ORDERED: QUEtiapine 50 MG TAB PO SCH (21:00)
[2020-11-14] MEDS ORDERED: QUEtiapine 100 MG TAB PO SCH (21:00)
[2020-11-15] MEDS: HYDROcodone/APAP 5-325MG 1 EACH TAB PO PRN ×2 (05:28→11:04)
[2020-11-15 05:35] VITALS: BP 104/71; PULSE 82; RESP 18
[2020-11-15 07:39] LABS: Glucose,Whole Blood 86 mg/dL (75-99)
[2020-11-15] MEDS: NICOTINE 21MG/24HR PATCH TRANSDERM SCH (08:31)
[2020-11-15] MEDS: GABAPENTIN 300 MG CAP PO SCH ×2 (08:31→15:44)
[2020-11-15] MEDS: HYDROCORTISONE 1% CREAM 454 GM JAR TOPICAL SCH (08:32)
[2020-11-15] MEDS ORDERED: QUEtiapine 25 MG TAB PO SCH (09:00)
[2020-11-15] MEDS: LORazepam 1 MG TAB PO PRN (12:32)
[2020-11-15 12:39] LABS: Glucose,Whole Blood 93 mg/dL (75-99)
--- NOTE | 2020-11-15 12:44 | P.DS ---
Providers Date of admission: 11/12/20 14:50 Expected date of discharge: 11/15/20 Attending physician: Uche Etienne MD Consults: 11/12/20 15:00 Consult Physician Routine Consulting Provider: Patricia Freeman Consult Reason/Comments: Medical Management Do you want consulting provider notified?: Yes Primary care physician: Physician Nonstaff - Discharge Diagnosis(es) (1) Bipolar II disorder Current Visit: Yes Status: Acute Priority: High (2) Nicotine dependence Current Visit: Yes Status: Chronic Priority: Medium Hospital Course: Admission HPI: Initial psychiatric evaluation was completed by Dr. Kauffman on 11/13/2020 who wrote: "This patient was admitted to Hospital with zeeshan. He stated he has nervousness and anxiety. Patient stated that he has been struggling off and on with the mood swings for a number of years. He stated he becomes depressed. He does not want to do anything and has no energy and does not want to come out of the house and then becomes angry agitated for no apparent reason and there are time periods where he feels a very happy euphoric and continues to go through these mood swings. Patient stated he has been in psychiatric hospitals 3 different times. He stated he was in [facility] in [place] on their psychiatric unit. He also goes to outpatient in the [facility] at [facility]. He stated he takes care of his father. He stated that his sister has history of bipolar illness and his niece committed suicide. He stated that his sister has a history of alcoholism and patient himself stated that he used to drink alcohol but has stopped now. He stated he has a rash on the body and he uses prednisone cream for that. He stated he grew up with his mother and father and went to school only up until 10th grade. He stated he did not graduate. He stated he went to [place] looking for a job but suffered a back injury over there after working for 1-1/2 months and came back." Hospital course: Upon admission to the unit patient was initially presented with pressured speech, irritability, and racing thoughts. Patient was however directable and agreeable to commence treatment. Patient got along well with other patients on the unit and followed unit protocol. Patient was compliant with the medications and denied any side effects throughout hospital course. Patient was started on gabapentin and Seroquel for management of his mood swings and hypomanic symptoms. Patient spoke of his stressors and engaged in therapy both group and individual. The patient was experiencing increased stress due to the condition of his father's cancer diagnosis. Other target symptoms of his hypomania included his difficulty with sleep, racing thoughts, pressured speech. Patient was also seen by medical team for history and physical exam. Throughout the course of the hospitalization patient gradually improved with regards to mood stability, sleep and became future oriented with improved insight and judgment. On the day of discharge patient denied any suicidal or homicidal ideations intent or plan denied any auditory or visual hallucinations. Patient endorsed wanting to live for his health and family. The patient denied any access to guns or weapons. Patient denied any paranoia and did not endorse any delusions. Patient does not have a significant history of substance abuse however was counseled on abstaining from all substances including alcohol and marijuana. Patient was offered however declined inpatient substance-abuse rehab. Patient was also counseled on the medications and need for regular compliance and was encouraged to follow-up with their outpatient appointment for mental health and also for primary care. Prior to discharge a family meeting will be arranged by social welfare research worker to answer any questions and ensure safety upon discharge. Mental status exam: General Appearance: Patient appears to be stated age is alert, pleasant, and cooperative. Patient is in no acute distress and has fair hygiene and grooming Behavior: Patient is calmly seated without any agitated behavior. Eye contact is appropriate. Normal psychomotor activity. Speech: Patient's speech is fluent and nonpressured. Slightly fast but otherwise normal. Interruptible. Mood/Affect: Patient reports their mood is "much better", affect is congruent and euthymic to bright. Suicidality/Homicidality: Patient denies having any suicidal or homicidal ideation intent or plan. Perceptions: Patient denies any auditory or visual hallucinations. Though content/process: There is no evidence of any delusional thought content and thought process is linear and goal-directed. Patient is future-oriented. Memory and concentration: AOX3, grossly intact for the purposes of this session. Can spell "WORLD" backwards correctly. Judgment and insight: Improved Impression: Bipolar 2 disorder Nicotine dependence Cocaine abuse Plan: -Continue with discharge today as patient has improved and stabilized psychiatrically and is not currently an imminent threat to himself and/or others. Protective factors include a supportive family, future-orientation and openness to treatment. Risk factors include cocaine use. -Continue medications: Seroquel 25 mg qAM and 100 mg qHS for mood stabilization Gabapentin 300 mg tid for off-label mood stabilization with added benefit for pain -Patient was counseled on the need for medication compliance and appropriate follow-up at mental health and also primary care for medical issues. Patient verbalized understanding and agreed. -Social work to arrange for and conduct family meeting to ensure safety upon discharge and answer any questions/concerns. Social work also to arrange for patients follow up appointments with [facility] for psychiatric care along with follow up with primary care provider. -Patient counseled on abstaining from recreational drugs and marijuana and alcohol. Was informed/educated on the adverse effects on their physical and mental health. Patient verbally agreed and understood. -Patient was instructed to return to the hospital or seek immediate medical care if their psychiatric or medical symptoms do worsen or reoccur. Allergies Allergy/AdvReac Type Severity Reaction Status Date / Time Penicillins Allergy Mild Rash/Hives Verified 11/12/20 17:05 methadone Allergy choking Verified 11/12/20 17:05 feeling" Laboratory Results WBC 7.1 k/uL (3.8-10.6) 11/13/20 10:16 RBC 5.01 m/uL (4.30-5.90) 11/13/20 10:16 Hgb 15.4 gm/dL (13.0-17.5) 11/13/20 10:16 Hct 50.0 % (39.0-53.0) 11/13/20 10:16 MCV 99.9 fL (80.0-100.0) 11/13/20 10:16 MCH 30.8 pg (25.0-35.0) 11/13/20 10:16 MCHC 30.9 g/dL (31.0-37.0) L 11/13/20 10:16 RDW 14.1 % (11.5-15.5) 11/13/20 10:16 Plt Count 351 k/uL (150-450) 11/13/20 10:16 MPV 8.2 11/13/20 10:16 Neutrophils % (Manual) 60 % 11/13/20 10:16 Lymphocytes % (Manual) 28 % 11/13/20 10:16 Monocytes % (Manual) 9 % 11/13/20 10:16 Eosinophils % (Manual) 3 % 11/13/20 10:16 Neutrophils # (Manual) 4.26 k/uL (1.3-7.7) 11/13/20 10:16 Lymphocytes # (Manual) 1.99 k/uL (1.0-4.8) 11/13/20 10:16 Monocytes # (Manual) 0.64 k/uL (0-1.0) 11/13/20 10:16 Eosinophils # (Manual) 0.21 k/uL (0-0.7) 11/13/20 10:16 Nucleated RBCs 0 /100 WBC (0-0) 11/13/20 10:16 Manual Slide Review Performed 11/13/20 10:16 Macrocytosis Slight 11/13/20 10:16 Sodium 136 mmol/L (137-145) L 11/14/20 09:58 Potassium 4.6 mmol/L (3.5-5.1) 11/14/20 09:58 Chloride 108 mmol/L (98-107) H 11/14/20 09:58 Carbon Dioxide 24 mmol/L (22-30) 11/14/20 09:58 Anion Gap 4 mmol/L 11/14/20 09:58 BUN 18 mg/dL (9-20) 11/14/20 09:58 Creatinine 0.88 mg/dL (0.66-1.25) 11/14/20 09:58 Est GFR (CKD-EPI)AfAm >90 (>60 ml/min/1.73 sqM) 11/14/20 09:58 Est GFR (CKD-EPI)NonAf >90 (>60 ml/min/1.73 sqM) 11/14/20 09:58 Glucose 95 mg/dL (74-99) 11/14/20 09:58 POC Glucose (mg/dL) 93 mg/dL (75-99) 11/15/20 12:38 POC Glu Engraved Roller Inspector ID [email or web address] Farias 11/15/20 12:[address] Glu mg/dL 105 11/13/20 10:16 Hemoglobin A1c 5.3 % (4.0-6.0) 11/13/20 10:16 Calcium 9.4 mg/dL (8.4-10.2) 11/14/20 09:58 Total Bilirubin 0.7 mg/dL (0.2-1.3) 11/13/20 10:16 AST 30 U/L (17-59) 11/13/20 10:16 ALT 24 U/L (4-49) 11/13/20 10:16 Alkaline Phosphatase 44 U/L (38-126) 11/13/20 10:16 Total Protein 6.8 g/dL (6.3-8.2) 11/13/20 10:16 Albumin 4.4 g/dL (3.5-5.0) 11/13/20 10:16 Triglycerides 114.0 mg/dL (0.0-149.0) 11/13/20 10:16 Cholesterol 218 mg/dL (0-200) H 11/13/20 10:16 LDL Cholesterol, Calc 141.2 mg/dL (0.0-131.0) H 11/13/20 10:16 VLDL Cholesterol, Calc 22.80 mg/dL (5.00-40.00) 11/13/20 10:16 HDL Cholesterol 54.0 mg/dL (40.0-60.0) 11/13/20 10:16 Cholesterol/HDL Ratio 4.04 11/13/20 10:16 TSH 1.060 mIU/L (0.465-4.680) 11/13/20 10:16 Urine Color Yellow 11/13/20 14:55 Urine Appearance Clear (Clear) 11/13/20 14:55 Urine pH 6.0 (5.0-8.0) 11/13/20 14:55 Ur Specific [place] 1.017 (1.001-1.035) 11/13/20 14:55 Urine Protein Negative (Negative) 11/13/20 14:55 Urine Glucose (UA) Negative (Negative) 11/13/20 14:55 Urine Ketones Negative (Negative) 11/13/20 14:55 Urine Blood Negative (Negative) 11/13/20 14:55 Urine Nitrite Negative (Negative) 11/13/20 14:55 Urine Bilirubin Negative (Negative) 11/13/20 14:55 Urine Urobilinogen <2.0 mg/dL (<2.0) 11/13/20 14:55 Ur Leukocyte Esterase Negative (Negative) 11/13/20 14:55 Urine Opiates Screen Not Detected (NotDetected) 11/12/20 13:20 Ur Oxycodone Screen Not Detected (NotDetected) 11/12/20 13:20 Urine Methadone Screen Not Detected (NotDetected) 11/12/20 13:20 Ur Propoxyphene Screen Not Detected (NotDetected) 11/12/20 13:20 Ur Barbiturates Screen Not Detected (NotDetected) 11/12/20 13:20 U Tricyclic Antidepress Not Detected (NotDetected) 11/12/20 13:20 Ur Phencyclidine Scrn Not Detected (NotDetected) 11/12/20 13:20 Ur Amphetamines Screen Not Detected (NotDetected) 11/12/20 13:20 U Methamphetamines Scrn Not Detected (NotDetected) 11/12/20 13:20 U Benzodiazepines Scrn Not Detected (NotDetected) 11/12/20 13:20 Urine Cocaine Screen Detected (NotDetected) H 11/12/20 13:20 U Marijuana (THC) Screen Detected (NotDetected) H 11/12/20 13:20 Coronavirus (PCR) Not Detected (Not Detectd) 11/12/20 14:00 Vital Signs Temp 97.7 F 11/15/20 05:34 Pulse 82 11/15/20 05:34 Resp 18 11/15/20 05:34 BP 104/71 11/15/20 05:34 Pulse Ox 97 11/12/20 16:37 Patient Condition at Discharge: Stable Plan - Discharge Summary Discharge Rx Participant: No New Discharge Prescriptions: New Nicotine 21Mg/24Hr Patch [Habitrol] 1 patch TRANSDERM DAILY 30 Days patch QUEtiapine [SEROquel] 25 mg PO DAILY 30 Days tab QUEtiapine [SEROquel] 100 mg PO HS 30 Days tab Gabapentin [Neurontin] 300 mg PO TID 30 Days cap Continue HYDROcodone/APAP 5-325MG [[place] 5-325] 1 tab PO BID PRN PRN Reason: Pain Triamcinolone 0.1% Cream [Kenalog 0.1% Cream] 1 applicatio TOPICAL BID PRN PRN Reason: Skin Irritation Discontinued Gabapentin [Neurontin] 100 mg PO TID PRN PRN Reason: Pain DULoxetine HCL [Cymbalta] 60 mg PO DAILY Discharge Medication List HYDROcodone/APAP 5-325MG [[place] 5-325] 1 tab PO BID PRN 11/12/20 [History] Triamcinolone 0.1% Cream [Kenalog 0.1% Cream] 1 applicatio TOPICAL BID PRN 11/12/20 [History] Gabapentin [Neurontin] 300 mg PO TID 30 Days cap 11/15/20 [Rx] Nicotine 21Mg/24Hr Patch [Habitrol] 1 patch TRANSDERM DAILY 30 Days patch 11/15/20 [Rx] QUEtiapine [SEROquel] 25 mg PO DAILY 30 Days tab 11/15/20 [Rx] QUEtiapine [SEROquel] 100 mg PO HS 30 Days tab 11/15/20 [Rx] Follow up Appointment(s)/Referral(s): Mental Health, Community [Other] - 11/22/20 10:00 am ([place]) [facility] [NON[facility]STAFF] - 1 Week Patient Instructions/Handouts: How to Stop Smoking (DC), Depression (DC) Activity/Diet/Wound Care/Special Instructions: Activity and diet as tolerated. Avoid the use of street drugs and alcohol. Take all medications as prescribed. When you are in need of refills on your medications please contact your medical provider and/or outpatient psychiatrist to have this done. Please go to scheduled outpatient appointment for aftercare treatment. If symptoms return or become worse, call the crisis line at and/or go to the nearest emergency room for evaluation. Eliquis 10mg twice a day X7 days (11/10-11/17/20) then decrease Eliquis to 5 mg twice a day for 3 months (02/15/2021) for blood clots in bilateral legs. Please consult with your physician before discontinuing this medication. Discharge Disposition: HOME SELF-CARE
[2020-11-15] MEDS: ACETAMINOPHEN TAB 325 MG TAB PO PRN (14:21)
== END 2020-11-15 17:18 | disposition home or self-care (01) | DRG 885 ==
LOC: EC 11:10 → 3MHU 14:50
PROVIDERS: ADMIT Psychiatry & Neurology Psychiatry; ATTEND Psychiatry & Neurology Psychiatry
DX: F31.81 Bipolar II disorder (principal); R45.851 Suicidal ideations; F14.10 Cocaine abuse, uncomplicated; F17.200 Nicotine dependence, unspecified, uncomplicated; F41.9 Anxiety disorder, unspecified; M19.90 Unspecified osteoarthritis, unspecified site; Z79.899 Other long term (current) drug therapy; Z80.1 Family history of malignant neoplasm of trachea, bronchus and lung; Z87.828 Personal history of other (healed) physical injury and trauma; Z91.410 Personal history of adult physical and sexual abuse; Z91.411 Personal history of adult psychological abuse; Z20.822 Contact with and (suspected) exposure to COVID-19
CPT/HCPCS: 80048; 80053; 80061; 80306; 81003; 82075; 83036; 84443; 85025; 87635; 99284

== ENCOUNTER → 2024-04-30 | Outpatient (CLI) | payer MEDICARE, OTHER ==
[2024-04-30 09:48] VITALS: BP 121/80; PULSE 72; RESP 16; TEMP 97.8
--- NOTE | 2024-04-30 14:18 | P.PAINPG ---
PQRS Measure Charge Sheet History and Exam Findings: All other causes of pain ruled out Comment: HISTORY OF PRESENT ILLNESS: A 59 yr old male as a referral from Dr Weaver presents today w severe and chronic LBP > 6 mo secondary to radiculopathy, spondylosis and facet arthropathy without myelopathy for evaluation. Pt states pain level is provoked at 7 /10 in intensity, constant, localized in the lumbar spine, predominantly axial, dull in character w occasional shooting pain towards the RLE. Pain is provoked by walking/ standing for periods > 30 min. Pain is alleviated by PT x 6 wks which ended in 2022, physician guided home exercises/ stretches every other day since 2022, heat, ice, medications (Suboxone), repositioning and rest . Oswestry axial pain score at 28. PMH: OA, MDD PSH: Lumbar Laminectomy w Fusion x7 [id number]) SH: Daily tobacco use, Hx of ETOH abuse, Hx Cocaine & Cannabis use FH: Mo- CA. Fa- Lung CA. Niece- Suicide All: See list Meds: See list REVIEW OF ORGAN SYSTEMS: CONSTITUTIONAL: No fevers or chills. No recent weight loss. NEUROLOGICAL: + numbness and tingling along the distal extremities. No seizure disorders or headaches. MUSCULOSKELETAL: + pain PSYCHIATRIC: Denies current depression or suicidal thoughts. Physical Examinations : Constitutional : Cooperative , not in acute distress . Neurologic : Cranial nerve II to XII intact. No focal neurological deficits. Psychiatric : alert & oriented x 3. Matching mood & appropriate affect. Judgment & insight intact. Musculoskeletal : Cervical Spine Motor strength in the deltoid and biceps: Normal right side. Normal Left side Motor strength biceps and the wrist extensors: Normal right side . Normal left side Motor strength in the triceps muscle: Normal right side. Normal left side Deep tendon reflexes: Normal at the biceps. Normal at Brachioradialis. Normal at triceps Vertebral body tenderness to deep palpation over Cervical facet loading test: positive bilaterally Spurling test: positive bilaterally Neck distraction test: positive bilaterally Dhaval sign: positive bilaterally Lumbar spine +Incisional scars intact Motor strength lower extremities ,thigh and legs 5/5 Right side , 5/5 Left side Deep tendon reflexes : Normal Knee Jerk. Normal Ankle Jerk Vertebral body tenderness over Shankar Test positive Lumbar facet Loading Test: positive Right / positive Left Range of motion of the lumbar spine Flexion 30 degrees, extension 10 degrees Straight Leg Raise test: Left/ Right positive at degrees Yohana test: positive right / positive left. Severe tenderness over the Sacroiliac joint on the Right / Left sides Gaenslen test: positive bilaterally Seated flexion test: positive bilaterally. Sacral spine : Severe tenderness over the Sacroiliac joint: right side / left side Range of motion: Flexion of the lumbar spine <60 degrees Range of motion: Extension of the lumbar spine <20 degrees Gaenslen's Test positive Yohana test: positive right side / left side Thigh Thrust Test Sacral Thrust Test Imaging: CT non contrast of the lumbar spine from 03/28/24 reviewed Assessment/ Plan : L3-L5 posterior fusion w L3-L4/ L4-L5 intervertebral disc devices Recommendation of medication management. Suboxone 4mg/ 1mg SL film BID #60 w 1 RF. Use, side effects, adverse reactions, safe storage discussed. Opiate/ red cotic agreement signed 04/30/24. All questions answered. I have spent greater than 30 minutes on patient care today. Dr Rock was available by phone for the evaluation of this patient. The time was used to review the medical records including relevant urine studies and Prescription history (MAPs), review of the available imaging, evaluation and examination of the patient, coordination of care with the medical staff and if applicable referring physicians, as well as creation of the medical record - Pain Location Bilateral Lower Back Non-Pharmacological Interventions: Heat, Ice, Inactivity, Position/Reposition Pharmacological Interventions: PRN Medication, Scheduled Medication PQRS Narrative: Smoking Status Former smoker Hx Alcohol Use (MH) No Home Medications: Ambulatory Orders HYDROcodone/APAP 5-325MG [[place] 5-325] 1 tab PO BID PRN 11/12/20 Triamcinolone 0.1% Cream [Kenalog 0.1% Cream] 1 applicatio TOPICAL BID PRN 11/12/20 Gabapentin [Neurontin] 300 mg PO TID 30 Days cap 11/15/20 Nicotine 21Mg/24Hr Patch [Habitrol] 1 patch TRANSDERM DAILY 30 Days patch 11/15/20 QUEtiapine [SEROquel] 25 mg PO DAILY 30 Days tab 11/15/20 QUEtiapine [SEROquel] 100 mg PO HS 30 Days tab 11/15/20 Buprenorphine HCl/Naloxone HCl [Suboxone 8 mg-2 mg Sl Film] 1 film SL BID 30 Days #60 film 04/30/24 Controlled Substance Measures - Controlled Substance Measures Is patient prescribed a controlled substance at discharge?: Yes When asked, does pt state using other controlled substances?: No If prescribed controlled substance>3 days was MAPS reviewed?: Yes If Rx opioid, was Start Talking consent form obtained?: Yes Was information provided regarding opioid addiction?: Yes
== END ==
LOC: PNWHC3 09:27
PROVIDERS: ATTEND Specialist
DX: M48.061 Spinal stenosis, lumbar region without neurogenic claudication (principal); M47.816 Spondylosis without myelopathy or radiculopathy, lumbar region; M43.26 Fusion of spine, lumbar region; M51.369 Other intervertebral disc degeneration, lumbar region without mention of lumbar back pain or lower extremity pain; Z87.891 Personal history of nicotine dependence; Z88.0 Allergy status to penicillin; Z88.8 Allergy status to other drugs, medicaments and biological substances
CPT/HCPCS: 99211

== ENCOUNTER → 2024-06-25 | Outpatient (CLI) | payer MEDICARE, OTHER ==
[2024-06-25 09:32] VITALS: BP 114/77; PULSE 68; RESP 16; TEMP 97.5
--- NOTE | 2024-06-25 14:29 | P.PAINPG ---
Objective - Vital Signs Vital signs: Vital Signs Temp 97.5 F L 06/25/24 09:30 Pulse 68 06/25/24 09:30 Resp 16 06/25/24 09:30 BP 114/77 06/25/24 09:30 Pulse Ox 99 06/25/24 09:30 FiO2 PQRS Measure Charge Sheet Mode of Arrival: Ambulatory Comment: HISTORY OF PRESENT ILLNESS: A 59 yr old male presents today w severe and chronic LBP > 6 mo secondary to radiculopathy, spondylosis and facet arthropathy without myelopathy for medication refills. Pt states pain level is provoked at 7 /10 in intensity, constant, localized in the lumbar spine, predominantly axial, dull in character w occasional shooting pain towards the RLE. Pain is provoked by walking/ standing for periods > 30 min. Pain is alleviated by PT x 6 wks which ended in 2022, physician guided home exercises/ stretches every other day since 2022, heat, ice, medications, repositioning and rest . Interventional procedures include Medications include Suboxone Hx of ETOH abuse, Hx Cocaine & Cannabis use REVIEW OF ORGAN SYSTEMS: CONSTITUTIONAL: No fevers or chills. No recent weight loss. NEUROLOGICAL: + numbness and tingling along the distal extremities. No seizure disorders or headaches. MUSCULOSKELETAL: + pain PSYCHIATRIC: Denies current depression or suicidal thoughts. Physical Examinations : Constitutional : Cooperative , not in acute distress . Neurologic : Cranial nerve II to XII intact. No focal neurological deficits. Psychiatric : alert & oriented x 3. Matching mood & appropriate affect. Judgment & insight intact. Musculoskeletal : Cervical Spine Motor strength in the deltoid and biceps: Normal right side. Normal Left side Motor strength biceps and the wrist extensors: Normal right side . Normal left side Motor strength in the triceps muscle: Normal right side. Normal left side Deep tendon reflexes: Normal at the biceps. Normal at Brachioradialis. Normal at triceps Vertebral body tenderness to deep palpation over Cervical facet loading test: positive bilaterally Spurling test: positive bilaterally Neck distraction test: positive bilaterally Dhaval sign: positive bilaterally Lumbar spine +Incisional scars intact Motor strength lower extremities ,thigh and legs 5/5 Right side , 5/5 Left side Deep tendon reflexes : Normal Knee Jerk. Normal Ankle Jerk Vertebral body tenderness over Shankar Test positive Lumbar facet Loading Test: positive Right / positive Left Range of motion of the lumbar spine Flexion 30 degrees, extension 10 degrees Straight Leg Raise test: Left/ Right positive at degrees Yohana test: positive right / positive left. Severe tenderness over the Sacroiliac joint on the Right / Left sides Gaenslen test: positive bilaterally Seated flexion test: positive bilaterally. Sacral spine : Severe tenderness over the Sacroiliac joint: right side / left side Range of motion: Flexion of the lumbar spine <60 degrees Range of motion: Extension of the lumbar spine <20 degrees Gaenslen's Test positive Yohana test: positive right side / left side Thigh Thrust Test Sacral Thrust Test Imaging: CT non contrast of the lumbar spine from 03/28/24 reviewed Assessment/ Plan : L3-L5 posterior fusion w L3-L4/ L4-L5 intervertebral disc devices Recommendation of Caudal TOREY w Lysis and medication management. Risks, benefits of procedure discussed and pt verbalized understanding. Suboxone 4mg/ 1mg SL film BID #60 w 1 RF. UDS collected 06/25/24. Use, side effects, adverse reactions, safe storage discussed. Opiate/ narcotic agreement signed 04/30/24. All questions answered. I have spent greater than 30 minutes on patient care today. Dr Rock was available by phone for the evaluation of this patient. The time was used to review the medical records including relevant urine studies and Prescription history (MAPs), review of the available imaging, evaluation and examination of the patient, coordination of care with the medical staff and if applicable referring physicians, as well as creation of the medical record - Pain Location Bilateral Lower Back Non-Pharmacological Interventions: Exercise, Heat, Physical Therapy, Position/Reposition, Stretching Pharmacological Interventions: PRN Medication, Scheduled Medication PQRS Narrative: Smoking Status Former smoker Blood Pressure 114/77 Pain Intensity [Bilateral 8 Lower Back] Scale Used Numeric (1 - 10) Hx Alcohol Use (MH) No Home Medications: Ambulatory Orders HYDROcodone/APAP 5-325MG [[place] 5-325] 1 tab PO BID PRN 11/12/20 Triamcinolone 0.1% Cream [Kenalog 0.1% Cream] 1 applicatio TOPICAL BID PRN 11/12/20 Gabapentin [Neurontin] 300 mg PO TID 30 Days cap 11/15/20 Nicotine 21Mg/24Hr Patch [Habitrol] 1 patch TRANSDERM DAILY 30 Days patch 11/15/20 QUEtiapine [SEROquel] 25 mg PO DAILY 30 Days tab 11/15/20 QUEtiapine [SEROquel] 100 mg PO HS 30 Days tab 11/15/20 Buprenorphine HCl/Naloxone HCl [Suboxone 4 mg-1 mg Sl Film] 1 each SL BID 30 Days #60 film 06/25/24 diazePAM [Valium] 5 mg PO DAILY 1 Days #2 tab 06/25/24 Controlled Substance Measures - Controlled Substance Measures Is patient prescribed a controlled substance at discharge?: Yes When asked, does pt state using other controlled substances?: No If prescribed controlled substance>3 days was MAPS reviewed?: Yes
== END ==
LOC: PNWHC3 09:15
PROVIDERS: ATTEND Specialist
DX: M43.26 Fusion of spine, lumbar region (principal); M51.360 Other intervertebral disc degeneration, lumbar region with discogenic back pain only; Z88.0 Allergy status to penicillin; Z88.8 Allergy status to other drugs, medicaments and biological substances; Z87.891 Personal history of nicotine dependence
CPT/HCPCS: 80307; 99212

== ENCOUNTER → 2024-08-19 | Outpatient (CLI) | payer MEDICARE, OTHER ==
[2024-08-19 10:09] VITALS: BP 108/70; PULSE 54; RESP 16; TEMP 97.1
--- NOTE | 2024-08-19 15:47 | P.PAINPG ---
Objective - Vital Signs Vital signs: Vital Signs Temp 97.1 F L 08/19/24 10:04 Pulse 54 L 08/19/24 10:04 Resp 16 08/19/24 10:04 BP 108/70 08/19/24 10:04 Pulse Ox 99 08/19/24 10:04 FiO2 PQRS Measure Charge Sheet Mode of Arrival: Ambulatory Comment: HISTORY OF PRESENT ILLNESS: A 59 yr old male presents today w severe and chronic LBP > 6 mo secondary to L3- L5 posterior fusion w L3-L4/ L4-L5 intervertebral disc devices for medication refills. Pt states pain level is provoked at 8 /10 in intensity, constant, localized in the lumbar spine, predominantly axial, dull in character w occasional shooting pain towards the RLE. Pain is provoked by walking/ standing for periods > 30 min. Pain is alleviated by PT x 6 wks which ended in 2022, physician guided home exercises/ stretches every other day since 2022, heat, ic e, medications, repositioning and rest . Has deferred Caudal TOREY w Lysis. Interventional procedures include Medications include Suboxone Hx of ETOH abuse, Hx Cocaine & Cannabis use REVIEW OF ORGAN SYSTEMS: CONSTITUTIONAL: No fevers or chills. No recent weight loss. NEUROLOGICAL: + numbness and tingling along the distal extremities. No seizure disorders or headaches. MUSCULOSKELETAL: + pain PSYCHIATRIC: Denies current depression or suicidal thoughts. Physical Examinations : Constitutional : Cooperative , not in acute distress . Neurologic : Cranial nerve II to XII intact. No focal neurological deficits. Psychiatric : alert & oriented x 3. Matching mood & appropriate affect. Judgment & insight intact. Musculoskeletal : Cervical Spine Motor strength in the deltoid and biceps: Normal right side. Normal Left side Motor strength biceps and the wrist extensors: Normal right side . Normal left side Motor strength in the triceps muscle: Normal right side. Normal left side Deep tendon reflexes: Normal at the biceps. Normal at Brachioradialis. Normal at triceps Vertebral body tenderness to deep palpation over Cervical facet loading test: positive bilaterally Spurling test: positive bilaterally Neck distraction test: positive bilaterally Dhaval sign: positive bilaterally Lumbar spine +Incisional scars intact Motor strength lower extremities ,thigh and legs 5/5 Right side , 5/5 Left side Deep tendon reflexes : Normal Knee Jerk. Normal Ankle Jerk Vertebral body tenderness over Shankar Test positive Lumbar facet Loading Test: positive Right / positive Left Range of motion of the lumbar spine Flexion 30 degrees, extension 10 degrees Straight Leg Raise test: Left/ Right positive at degrees Yohana test: positive right / positive left. Severe tenderness over the Sacroiliac joint on the Right / Left sides Gaenslen test: positive bilaterally Seated flexion test: positive bilaterally. Sacral spine : Severe tenderness over the Sacroiliac joint: right side / left side Range of motion: Flexion of the lumbar spine <60 degrees Range of motion: Extension of the lumbar spine <20 degrees Gaenslen's Test positive Yohana test: positive right side / left side Thigh Thrust Test Sacral Thrust Test Imaging: CT non contrast of the lumbar spine from 03/28/24 reviewed Assessment/ Plan : L3-L5 posterior fusion w L3-L4/ L4-L5 intervertebral disc devices Recommendation of Caudal TOREY w Lysis and medication management. Risks, benefits of procedure discussed and pt verbalized understanding. Suboxone 4mg/ 1mg SL film BID #60 w 1 RF. UDS from 06/25/24 reviewed and consistent. Use, side effects, adverse reactions, safe storage discussed. Opiate/ narcotic agreement signed 04/30/24. All questions answered. I have spent greater than 30 minutes on patient care today. Dr Rock was available by phone for the evaluation of this patient. The time was used to review the medical records including relevant urine studies and Prescription history (MAPs), review of the available imaging, evaluation and examination of the patient, coordination of care with the medical staff and if applicable referring physicians, as well as creation of the medical record - Pain Location Bilateral Lower Neck Non-Pharmacological Interventions: Heat, Inactivity, Position/Reposition Pharmacological Interventions: PRN Medication, Scheduled Medication PQRS Narrative: Smoking Status Former smoker Narcotic Agreement Date Signed 06/24/24 Blood Pressure 108/70 Pain Intensity [Bilateral 8 Lower Neck] Scale Used Numeric (1 - 10) Hx Alcohol Use (MH) No Home Medications: Ambulatory Orders HYDROcodone/APAP 5-325MG [[place] 5-325] 1 tab PO BID PRN 11/12/20 Triamcinolone 0.1% Cream [Kenalog 0.1% Cream] 1 applicatio TOPICAL BID PRN 11/12/20 Gabapentin [Neurontin] 300 mg PO TID 30 Days cap 11/15/20 Nicotine 21Mg/24Hr Patch [Habitrol] 1 patch TRANSDERM DAILY 30 Days patch 11/15/20 QUEtiapine [SEROquel] 25 mg PO DAILY 30 Days tab 11/15/20 QUEtiapine [SEROquel] 100 mg PO HS 30 Days tab 11/15/20 Buprenorphine HCl/Naloxone HCl [Suboxone 4 mg-1 mg Sl Film] 1 each SL BID 30 Days #60 film 06/25/24 diazePAM [Valium] 5 mg PO DAILY 1 Days #2 tab 06/25/24 Controlled Substance Measures - Controlled Substance Measures Is patient prescribed a controlled substance at discharge?: Yes When asked, does pt state using other controlled substances?: No If prescribed controlled substance>3 days was MAPS reviewed?: Yes
== END ==
LOC: PNWHC3 09:23
PROVIDERS: ATTEND Specialist
DX: M43.26 Fusion of spine, lumbar region (principal); Z88.0 Allergy status to penicillin; Z88.5 Allergy status to narcotic agent; Z87.891 Personal history of nicotine dependence
CPT/HCPCS: 99211

== ENCOUNTER → 2024-10-14 | Outpatient (CLI) | payer MEDICARE, OTHER ==
[2024-10-14 10:06] VITALS: BP 115/72; PULSE 65; RESP 16; TEMP 96.4
--- NOTE | 2024-10-14 15:54 | P.PAINPG ---
Objective - Vital Signs Vital signs: Vital Signs Temp 96.4 F L 10/14/24 09:57 Pulse 65 10/14/24 09:57 Resp 16 10/14/24 09:57 BP 115/72 10/14/24 09:57 Pulse Ox 100 10/14/24 09:57 FiO2 Intake & Output 10/13/24 10/14/24 10/14/24 18:59 06:59 18:59 Weight 65.771 kg PQRS Measure Charge Sheet Mode of Arrival: Ambulatory Comment: HISTORY OF PRESENT ILLNESS: A 59 yr old male presents today w severe and chronic LBP > 6 mo secondary to L3- L5 posterior fusion w L3-L4/ L4-L5 intervertebral disc devices for medication refills. Pt states pain level is provoked at 8 /10 in intensity, constant, localized in the lumbar spine, predominantly axial, dull in character w occasional shooting pain towards the RLE. Pain is provoked by walking/ standing for periods > 30 min. Pain is alleviated by PT x 6 wks which ended in 2022, physician guided home exercises/ stretches every other day since 2022, heat, ice, medications, repositioning and rest . Has deferred Caudal TOREY w Lysis. Interventional procedures include (Caudal TOREY w Lysis ordered 08/19/24) Medications include Suboxone Hx of ETOH abuse, Hx Cocaine & Cannabis use REVIEW OF ORGAN SYSTEMS: CONSTITUTIONAL: No fevers or chills. No recent weight loss. NEUROLOGICAL: + numbness and tingling along the distal extremities. No seizure disorders or headaches. MUSCULOSKELETAL: + pain PSYCHIATRIC: Denies current depression or suicidal thoughts. Physical Examinations : Constitutional : Cooperative , not in acute distress . Neurologic : Cranial nerve II to XII intact. No focal neurological deficits. Psychiatric : alert & oriented x 3. Matching mood & appropriate affect. Judgment & insight intact. Musculoskeletal : Cervical Spine Motor strength in the deltoid and biceps: Normal right side. Normal Left side Motor strength biceps and the wrist extensors: Normal right side . Normal left side Motor strength in the triceps muscle: Normal right side. Normal left side Deep tendon reflexes: Normal at the biceps. Normal at Brachioradialis. Normal at triceps Vertebral body tenderness to deep palpation over Cervical facet loading test: positive bilaterally Spurling test: positive bilaterally Neck distraction test: positive bilaterally Dhaval sign: positive bilaterally Lumbar spine +Incisional scars intact Motor strength lower extremities ,thigh and legs 5/5 Right side , 5/5 Left side Deep tendon reflexes : Normal Knee Jerk. Normal Ankle Jerk Vertebral body tenderness over L5 Shankar Test positive BL L5-S1 Lumbar facet Loading Test: positive Right / positive Left Range of motion of the lumbar spine Flexion 30 degrees, extension 10 degrees Straight Leg Raise test: Left/ Right positive at degrees Yohana test: positive right / positive left. Severe tenderness over the Sacroiliac joint on the Right / Left sides Gaenslen test: positive bilaterally Seated flexion test: positive bilaterally. Sacral spine : Severe tenderness over the Sacroiliac joint: right side / left side Range of motion: Flexion of the lumbar spine <60 degrees Range of motion: Extension of the lumbar spine <20 degrees Gaenslen's Test positive Yohana test: positive right side / left side Thigh Thrust Test Sacral Thrust Test Imaging: CT non contrast of the lumbar spine from 03/28/24 reviewed Assessment/ Plan : L3-L5 posterior fusion w L3-L4/ L4-L5 intervertebral disc devices Recommendation of Caudal TOREY w Lysis and medication management. Risks, benefits of procedure discussed and pt verbalized understanding. Suboxone 4mg/ 1mg SL film BID #60 w 1 RF. UDS from 06/25/24 reviewed and consistent. Use, side effects, adverse reactions, safe storage discussed. Opiate/ narcotic agreement signed 04/30/24. All questions answered. I have spent greater than 30 minutes on patient care today. Dr Rock was available by phone for the evaluation of this patient. The time was used to review the medical records including relevant urine studies and Prescription history (MAPs), review of the available imaging, evaluation and examination of the patient, coordination of care with the medical staff and if applicable referring physicians, as well as creation of the medical record - Pain Location Bilateral Lower Back Non-Pharmacological Interventions: Heat, Inactivity, Physical Therapy, Position/Reposition, Relaxation Technique, Sitting, Standing Pharmacological Interventions: Scheduled Medication, Topical Medication PQRS Narrative: Smoking Status Former smoker Narcotic Agreement Date Signed 06/24/24 Blood Pressure 115/72 Pain Intensity [Bilateral 7 Lower Back] Scale Used Numeric (1 - 10) Hx Alcohol Use (MH) No Home Medications: Ambulatory Orders Triamcinolone 0.1% Cream [Kenalog 0.1% Cream] 1 applicatio TOPICAL BID PRN 11/12/20 Gabapentin [Neurontin] 300 mg PO TID 30 Days cap 11/15/20 Nicotine 21Mg/24Hr Patch [Habitrol] 1 patch TRANSDERM DAILY 30 Days patch 11/15/20 QUEtiapine [SEROquel] 25 mg PO DAILY 30 Days tab 11/15/20 QUEtiapine [SEROquel] 100 mg PO HS 30 Days tab 11/15/20 Buprenorphine HCl/Naloxone HCl [Suboxone 4 mg-1 mg Sl Film] 1 each SL BID 30 Days #60 film 10/14/24 Controlled Substance Measures - Controlled Substance Measures Is patient prescribed a controlled substance at discharge?: Yes When asked, does pt state using other controlled substances?: No If prescribed controlled substance>3 days was MAPS reviewed?: Yes
== END ==
LOC: PNWHC3 09:47
PROVIDERS: ATTEND Specialist
DX: M51.369 Other intervertebral disc degeneration, lumbar region without mention of lumbar back pain or lower extremity pain (principal); M43.26 Fusion of spine, lumbar region; Z88.0 Allergy status to penicillin; Z88.8 Allergy status to other drugs, medicaments and biological substances; Z87.891 Personal history of nicotine dependence
CPT/HCPCS: 99211

== ENCOUNTER 2024-11-06 10:44 | Day surgery (SDC) | payer MEDICARE, OTHER ==
[2024-11-06 11:52] VITALS: RESP 16; TEMP 97.1
[2024-11-06] MEDS ORDERED: IOPAMIDOL M200 10 ML VIAL ONE (12:33)
[2024-11-06] MEDS ORDERED: fentaNYL (PF) 50 MCG/ML 2 ML AMP ONE (12:33)
[2024-11-06] MEDS ORDERED: methylPREDNISolone ACETATE 80 MG/ML 1 ML VIAL ONE (12:33)
--- NOTE | 2024-11-06 12:55 | P.PCN ---
Date of Procedure: 11/06/24 Procedure(s) Performed: PREOP DIAGNOSIS: 1- Lumbar postlaminectomy syndrome. POSTOP DIAGNOSIS:1- Lumbar postlaminectomy syndrome. PROCEDURE: 1-Caudal epidural steroid injection with epidurolysis and epidurogram under fluoroscopic guidance. (Fluoroscopy radiology Department ) 2-caudal epidurogram. ANESTHESIA: Lidocaine 1% 5 mL. EBL: Minimal. PROCEDURE INDICATION: The patient with post-laminectomy syndrome with low back pain and radiculopathy radiating down in both legs, here for a caudal epidural steroid injection with epidurolysis. PROCEDURE DESCRIPTION: The patient was seen and identified in the preoperative area. Risks, benefits, complications, and alternatives were discussed with the patient. The patient agreed to proceed with the procedure and signed the consent. IV was started, and vital signs were stable. Patient was taken to the OR and time out was completed. The patient was placed in the prone position on procedure table and a pillow was placed under the abdomen to reduce lumbar lordosis. The lumbosacral area was prepped and draped in the usual sterile fashion. Vital signs were closely monitored during the procedure. lateral view and the anterior-posterior plates of the sacrum were identified with infiltration of the area overlying the sacral hiatus with 1% lidocaine .A 17 gauge RK epidural needle was used to advance through the sacral hiatus into the caudal epidural space. Omnipaque 180 dye. 2cc was injected and the position of the needle was verified to be in the midline. A Racz catheter was introduced into the epidural space and was advanced towards the L5-S1 interspace under direct fluoroscopic guidance. Multiple passes were made with t he catheter for lysis of epidural adhesions. Depo-Medrol 80 mg ( preservative-free ) with 3ml of preservative free Lidocaine 1% and 5 ml of preservative free normal saline was injected slowly. Additional spread was seen to L4 under fluoroscopy. The needle and the catheter were withdrawn intact. EPIDUROGRAM: Omnipaque 180 mg dye 2 ml was injected with spread of the dye into the caudal epidural space and with spread cutoff at L5 prior to epidurolysis. Post epidurolysis dye 2 ml was injected and spread was seen to L3-4.There was further spread of the solution together with the dye above the L3 COMPLICATIONS: None. note= within the procedure patient was complaining of severe pain for this reason fentanyl 200 mcg given intravenously during the procedure to facilitate patient the procedure. DISPOSITION / PLANS: The patient was placed in a supine position and transferred to the recovery area in a stable condition for observation and was discharged from the recovery room after meeting discharge criteria. Home discharge instructions given to the patient by the staff. The patient was reexamined prior to discharge. The patient will schedule a follow up in the clinic in 2-4 weeks.
--- NOTE | 2024-11-06 13:10 | FL ---
EXAMINATION TYPE: FL guided pain mgmt statistic DATE OF EXAM: 11/06/[address] AMBROSIO FL TIME: 11 SEC DAP: [id number] EH CE 3 images are submitted. [facility], , 11/06/2024 1:08 PM
[2024-11-06 13:27] VITALS: BP 126/83; PULSE 54
== END 2024-11-06 13:30 | disposition home or self-care (01) ==
LOC: ORPAIN 10:44
PROVIDERS: ATTEND Specialist
DX: M96.1 Postlaminectomy syndrome, not elsewhere classified (principal); M54.16 Radiculopathy, lumbar region; Z88.0 Allergy status to penicillin; Z88.8 Allergy status to other drugs, medicaments and biological substances
CPT/HCPCS: 62323; J3010; Q9966; J1010; 62264; 99152

== ENCOUNTER → 2024-11-17 | Outpatient (CLI) | payer MEDICARE, OTHER | LOC: CPPFTMAIN 14:51 | PROVIDERS: ATTEND Internal Medicine | DX: R06.02 Shortness of breath (principal); Z88.0 Allergy status to penicillin; Z88.5 Allergy status to narcotic agent; Z87.891 Personal history of nicotine dependence | CPT/HCPCS: 94060; 94726; 94729 ==

== ENCOUNTER → 2024-11-26 | Outpatient (CLI) | payer MEDICARE, OTHER ==
[2024-11-26 13:17] VITALS: BP 117/71; PULSE 51; RESP 16; TEMP 97.7
--- NOTE | 2024-11-26 16:22 | P.PAINPG ---
PQRS Measure Charge Sheet Comment: HISTORY OF PRESENT ILLNESS: A 59 yr old male presents today w severe and chronic LBP > 6 mo secondary to L3-L5 posterior fusion w L3-L4/ L4-L5 intervertebral disc devices for medication refills and evaluation s/p Caudal TOREY #1. Pt states he experienced % pain relief x 3 wks s/p procedure. Pt states pain level is provoked at 8 /10 in intensity, constant, localized in the lumbar spine, predominantly axial, dull in character w occasional shooting pain towards the RLE. Pain is provoked by walking/ standing for periods > 30 min. Pain is alleviated by PT x 6 wks which ended in 2022, physician guided home exercises/ stretches every other day since 2022, heat, ice, medications, repositioning and rest . Has deferred Caudal TOREY w Lysis. Interventional procedures include Caudal TOREY (11/01) Medications include Suboxone Hx of ETOH abuse, Hx Cocaine & Cannabis use REVIEW OF ORGAN SYSTEMS: CONSTITUTIONAL: No fevers or chills. No recent weight loss. NEUROLOGICAL: + numbness and tingling along the distal extremities. No seizure disorders or headaches. MUSCULOSKELETAL: + pain PSYCHIATRIC: Denies current depression or suicidal thoughts. Physical Examinations : Constitutional : Cooperative , not in acute distress . Neurologic : Cranial nerve II to XII intact. No focal neurological deficits. Psychiatric : alert & oriented x 3. Matching mood & appropriate affect. Judgment & insight intact. Musculoskeletal : Cervical Spine Motor strength in the deltoid and biceps: Normal right side. Normal Left side Motor strength biceps and the wrist extensors: Normal right side . Normal left side Motor strength in the triceps muscle: Normal right side. Normal left side Deep tendon reflexes: Normal at the biceps. Normal at Brachioradialis. Normal at triceps Vertebral body tenderness to deep palpation over Cervical facet loading test: positive bilaterally Spurling test: positive bilaterally Neck distraction test: positive bilaterally Dhaval sign: positive bilaterally Lumbar spine +Incisional scars intact Motor strength lower extremities ,thigh and legs 5/5 Right side , 5/5 Left side Deep tendon reflexes : Normal Knee Jerk. Normal Ankle Jerk Vertebral body tenderness over L5 Shankar Test positive BL L5-S1 Lumbar facet Loading Test: positive Right / positive Left Range of motion of the lumbar spine Flexion 30 degrees, extension 10 degrees Straight Leg Raise test: Left/ Right positive at degrees Yohana test: positive right / positive left. Severe tenderness over the Sacroiliac joint on the Right / Left sides Gaenslen test: positive bilaterally Seated flexion test: positive bilaterally. Sacral spine : Severe tenderness over the Sacroiliac joint: right side / left side Range of motion: Flexion of the lumbar spine <60 degrees Range of motion: Extension of the lumbar spine <20 degrees Gaenslen's Test positive Yohana test: positive right side / left side Thigh Thrust Test Sacral Thrust Test Imaging: CT non contrast of the lumbar spine from 03/28/24 reviewed Assessment/ Plan : L3-L5 posterior fusion w L3-L4/ L4-L5 intervertebral disc devices Recommendation of medication management. Major drug interactions of coma & exist with suboxone interaction with either pregabalin or gabapentin. Would benefit from PT x 6 wks M54.12, M54.14 to focus on traction. 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 Ample supply of Suboxone 4mg/ 1mg SL film BID #60 w 1 RF. Celebrex 100mg #60 w RF. UDS from 06/25/24 reviewed and consistent. Use, side effects, adverse reactions, safe storage discussed. Opiate/ narcotic agreement signed 04/30/24. All questions answered. I have spent greater than 30 minutes on patient care today. Dr Rock was available by phone for the evaluation of this patient. The time was used to review the medical records including relevant urine studies and Prescription history (MAPs), review of the available imaging, evaluation and examination of the patient, coordination of care with the medical staff and if applicable referring physicians, as well as creation of the medical record - Pain Location Bilateral Lower Back Non-Pharmacological Interventions: Exercise, Heat, Home Exercise, Massage, Physical Therapy, TENS Unit Pharmacological Interventions: Scheduled Medication PQRS Narrative: Smoking Status Former smoker Narcotic Agreement Date Signed 06/24/24 Hx Alcohol Use (MH) No Home Medications: Ambulatory Orders Buprenorphine HCl/Naloxone HCl [Suboxone 4 mg-1 mg Sl Film] 1 each SL BID 30 Days #60 film 10/14/24 Celecoxib [CeleBREX] 100 mg PO BID 30 Days #60 cap 11/26/24 Controlled Substance Measures - Controlled Substance Measures Is patient prescribed a controlled substance at discharge?: No
== END ==
LOC: PNWHC3 12:13
PROVIDERS: ATTEND Specialist
DX: M54.50 Low back pain, unspecified (principal); G89.29 Other chronic pain; Z88.0 Allergy status to penicillin; Z88.5 Allergy status to narcotic agent; Z87.891 Personal history of nicotine dependence; Z98.1 Arthrodesis status
CPT/HCPCS: 99212

== ENCOUNTER 2024-12-22 07:48 | Day surgery (SDC) | payer MEDICARE, OTHER ==
[2024-12-21 09:45] VITALS: BMI 24.1
[2024-12-22 08:24] VITALS: RESP 18; TEMP 97.9
[2024-12-22] MEDS: LACTATED RINGERS 1,000 ML IV SCH (08:31)
[2024-12-22] MEDS: IV FLUID CONTINUATION 1,000 ML IV ONE (08:31)
[2024-12-22] MEDS ORDERED: PROPOFOL 10 MG/ML 20 ML VIAL IV ONE (08:52)
--- NOTE | 2024-12-22 09:15 | P.PCN ---
Date of Procedure: 12/22/24 Procedure(s) Performed: PREOPERATIVE DIAGNOSIS: Dysphagia, screening POSTOPERATIVE DIAGNOSIS: Mild gastritis, small hiatal hernia, poor prep PROCEDURE: 1. EGD with biopsy 2. Colonoscopy ANESTHESIA: MAC SURGEON: Antelmo Cline M.D. SPECIMENS: Antrum ENDOSCOPIC PROCEDURE: The patient was on the endoscopy table in the left decubitus position. The Olympus gastroscope was inserted into the oropharynx and passed under direct visualization to the region of the third portion of the duodenum. From that point the scope was slowly withdrawn inspecting all surfaces carefully. There were no neoplastic inflammatory or polypoid lesions throughout the duodenum. The pylorus was widely patent. The stomach was carefully inspected. There was mild gastritis present. A biopsy of the antrum took place to rule out H. pylori. Retroflexion revealed a small 1 cm hiatal hernia. The esophagus was then carefully examined. There were no neoplastic inflammatory or polypoid lesions throughout the visualized esophagus. The patient was kept on the endoscopy table in the left decubitus position. The Olympus colonoscope was inserted into the anus and passed under direct visualization to the base of the cecum. The appendiceal orifice was visualized. From that point the scope was slowly withdrawn inspecting all surfaces carefully. There were no neoplastic inflammatory or polypoid lesions throughout the cecum, ascending, transverse, descending, sigmoid and rectum. There was no visible diverticulosis noted. The patient's prep was poor with retained solid and liquid stool throughout. I would estimate about 60 to 70% of the mucosal surfaces were visualized. Digital rectal examination was normal. The patient was taken to the recovery room in stable condition per anesthesia guidelines. RECOMMENDATIONS: Await biopsy results. Etiology for dysphagia unclear. Consider speech pathology consultation given the description of his trouble swallowing and the impact it has on his breathing.
[2024-12-22 09:31] VITALS: BP 111/64; PULSE 62
== END 2024-12-22 09:50 | disposition home or self-care (01) ==
LOC: ORWHC2ENDO 07:48
PROVIDERS: ATTEND Surgery
DX: Z12.11 Encounter for screening for malignant neoplasm of colon (principal); K29.70 Gastritis, unspecified, without bleeding; K44.9 Diaphragmatic hernia without obstruction or gangrene; M19.90 Unspecified osteoarthritis, unspecified site; Z89.529 Acquired absence of unspecified knee; Z88.0 Allergy status to penicillin; Z88.5 Allergy status to narcotic agent; Z79.899 Other long term (current) drug therapy
CPT/HCPCS: 88305; 45378; 43239; J2704

== ENCOUNTER → 2025-01-07 | Outpatient (CLI) | payer MEDICARE, OTHER ==
[2025-01-07 10:01] VITALS: BP 120/70; PULSE 66; RESP 18
--- NOTE | 2025-01-07 14:32 | P.PAINPG ---
PQRS Measure Charge Sheet Comment: HISTORY OF PRESENT ILLNESS: A 59 yr old male presents today w severe and chronic neck and LBP > 1 year secondary to L3-L5 posterior fusion w L3-L4/ L4-L5 intervertebral disc devices for medication refills. Pt states pain level is provoked at 8 /10 in intensity, constant, localized in the lumbar spine, predominantly axial, dull in character w occasional shooting pain towards the RLE. Pain is provoked by walking/ standing for periods > 30 min. Pain is alleviated by PT x 3 wks (cerv) which he is currently in, physician guided home exercises/ stretches every other day since 2022, heat, ice, medications, repositioning and rest . Previously deferred Caudal TOREY w Lysis due to limited pain relief w Caudal TOREY. Interventional procedures include Caudal TOREY (11/01) Medications include Suboxone Hx of ETOH abuse, Hx Cocaine & Cannabis use REVIEW OF ORGAN SYSTEMS: CONSTITUTIONAL: No fevers or chills. No recent weight loss. NEUROLOGICAL: + numbness and tingling along the distal extremities. No seizure disorders or headaches. MUSCULOSKELETAL: + pain PSYCHIATRIC: Denies current depression or suicidal thoughts. Physical Examinations : Constitutional : Cooperative , not in acute distress . Neurologic : Cranial nerve II to XII intact. No focal neurological deficits. Psychiatric : alert & oriented x 3. Matching mood & appropriate affect. Judgment & insight intact. Musculoskeletal : Cervical Spine Motor strength in the deltoid and biceps: Normal right side. Normal Left side Motor strength biceps and the wrist extensors: Normal right side . Normal left side Motor strength in the triceps muscle: Normal right side. Normal left side Deep tendon reflexes: Normal at the biceps. Normal at Brachioradialis. Normal at triceps Vertebral body tenderness to deep palpation over Cervical facet loading test: positive bilaterally Spurling test: positive bilaterally Neck distraction test: positive bilaterally Dhaval sign: positive bilaterally Lumbar spine +Incisional scars intact Motor strength lower extremities ,thigh and legs 5/5 Right side , 5/5 Left side Deep tendon reflexes : Normal Knee Jerk. Normal Ankle Jerk Vertebral body tenderness over L5 Shankar Test positive BL L5-S1 Lumbar facet Loading Test: positive Right / positive Left Range of motion of the lumbar spine Flexion 30 degrees, extension 10 degrees Straight Leg Raise test: Left/ Right positive at degrees Yohana test: positive right / positive left. Severe tenderness over the Sacroiliac joint on the Right / Left sides Gaenslen test: positive bilaterally Seated flexion test: positive bilaterally. Sacral spine : Severe tenderness over the Sacroiliac joint: right side / left side Range of motion: Flexion of the lumbar spine <60 degrees Range of motion: Extension of the lumbar spine <20 degrees Gaenslen's Test positive Yohana test: positive right side / left side Thigh Thrust Test Sacral Thrust Test Imaging: CT non contrast of the lumbar spine from 03/28/24 reviewed Assessment/ Plan : L3-L5 posterior fusion w L3-L4/ L4-L5 intervertebral disc devices Recommendation of medication management. Major drug interactions of coma & exist with suboxone interaction with either pregabalin or gabapentin. Suboxone 4mg/ 1mg SL film TID #90 w 2 RF. Celebrex 100mg #60 w RF. UDS from 06/25/24 reviewed and consistent. Use, side effects, adverse reactions, safe storage discussed. Opiate/ narcotic agreement signed 04/30/24. All questions answered. I have spent greater than 30 minutes on patient care today. Dr Rock was available by phone for the evaluation of this patient. The time was used to review the medical records including relevant urine studies and Prescription history (MAPs), review of the available imaging, evaluation and examination of the patient, coordination of care with the medical staff and if applicable referring physicians, as well as creation of the medical record - Pain Location Generalized Non-Pharmacological Interventions: Heat, Ice Pharmacological Interventions: Medication PQRS Narrative: Smoking Status Former smoker Narcotic Agreement Date Signed 06/24/24 Hx Alcohol Use (MH) No Home Medications: Ambulatory Orders Celecoxib [CeleBREX] 100 mg PO BID 30 Days #60 cap 11/26/24 Buprenorphine HCl/Naloxone HCl [Suboxone 4 mg-1 mg Sl Film] 1 each SL TID 30 Days #90 film 01/07/25 Controlled Substance Measures - Controlled Substance Measures Is patient prescribed a controlled substance at discharge?: Yes When asked, does pt state using other controlled substances?: Yes If prescribed controlled substance>3 days was MAPS reviewed?: Yes
== END ==
LOC: PNWHC3 09:35
PROVIDERS: ATTEND Specialist
DX: M96.1 Postlaminectomy syndrome, not elsewhere classified (principal); Z96.60 Presence of unspecified orthopedic joint implant; Z88.0 Allergy status to penicillin; Z88.5 Allergy status to narcotic agent; Z87.891 Personal history of nicotine dependence
CPT/HCPCS: 99212